=== PATIENT | female | born 1945 | race Caucasian/White ===

== ENCOUNTER 2018-05-15 21:18 | Inpatient (IN) ==
[2018-05-15 21:31] VITALS: BMI 24.7
--- NOTE | 2018-05-15 22:11 | DR.EXTPAIN ---
HPI Time seen Time Seen by Provider: 05/15/18 21:51 PCP Primary Care Physician: EVON ARMSTRONG Complaint/Symptoms Chief Complaint Doctor Comments: Patient presents to the ED with complaint of vomiting and diarrhea today. She was discharged from [place] on yesterday s/p evaluation a fall on 04/08 with injuries sustaining injuries of right shoulder, right hip and pelvis. PMHx: Complex, comminuted, impacted , displaced fracture of the humeral head and humeral neck of the right shoulder. 2.Vertical fracture of the right sacral ala with inferior aspect of the fracture involving the right sacroiliac joint, fracture of the anterior superior aspect of the acetabulum,oblique fracture involving rhe right ischium and right inferior pubic ramus, fracture of the superior pubic ramus near the pubic symphysis with the right hip joint and proximal femur being intact. 3.Hypoxia, resolved. This is multifactorial in etiology secondary to her chronic diastolic heart failure exacerbated by bilateral pleural effusion with bibasilar atelectasis. 4.Electrolyte imbalance, repleted.5.Acute kidney injury, resolved. 6. Chronic diastolic heart failure 7. Anemia of chronic disease. She was in a step down unit for rehabilitation. Family members states that she has been vomiting and having diarrhea today and is weak and listless. Chief Complaint:: PATIENT BROUGHT IN ON STRETCHER BY [facility]. PATIENT STATES " SHE JUST GOT DISCHARGED FROM [facility] YESTERDAY FOR RIGHT SIDE SHOULDER AND HIP FRACTURE THAT THEY ARE GOING TO HOLD OFF ON THE SURGERY FOR NOW BUT WHEN THEY DISCHARGED HER SHE DIDNT FEEL GOOD AND ON THE WAY HOME SHE GOT SICK THROWING UP AND EVER SINCE THEN IT HAS JUST GOTTEN WORST AND BEEN REALLY WEAK." Self Treatment fo Chief Complaint: 0.5 DILUDID IVP AND 500ML NS BOLUS GIVEN BY [facility] ENROUTE TO ED Source History Provided: Patient and EMS Mode of arrival Mode of Arrival: EMS Timing Onset of Chief Complaint: 05/14/18 PMH PMH Past Medical History: No Past Medical History: Hypertension Past Surgical History: Yes Surgical History: Appendectomy, Hysterectomy and Tonsillectomy Family History History of Family Medical Conditions: No Social History Alcohol Use: None Do you use any recreational Drugs:: No Lives Where: Home infectious screening Have you traveled outside the country in the last 6 months?: No PE Vital Signs Vitals: Temperature 98.1 F Pulse Rate [Left Brachial] 74 Pulse Rate [Brachial] 87 Pulse Rate 103 Respiratory Rate 18 Blood Pressure [Left Arm] 109/56 Blood Pressure [Left Calf] 114/59 Blood Pressure 120/69 O2 Sat by Pulse Oximetry 96 General Limitations: No Limitations and Physical Limitation (fractures of shoulder,hip and pelvis) General Appearance: Alert and In No Apparent Distress Head Head Exam: Normal Inspection, Atraumatic and Normocephalic Eyes Eye exam: Normal Appearance, PERRL and EOMI ENT ENT Exam: Normal Exam, Normal Oropharynx, Normal External Ear Exam and Mucous Membranes Moist Neck Neck Exam: Normal Inspection and Full ROM Chest Chest Inspection: Normal Inspection and Symmetric Chest Wall Rise Respiratory Respiratory Exam: Normal Lung Sounds Bilat and Accessory Muscle Use Respiratory Exam: Bilateral: Clear to Auscultation Cardiovascular Cardiovascular Exam: Regular Rate and Normal Rhythm Abdominal Exam Abdominal Exam: Normal Inspection, Normal Bowel Sounds and Soft Abdominal Tenderness: RUQ, RLQ and LUQ Extremities Extremities Exam: Normal Inspection, Tenderness (right hip,shoulder) and Normal Capillary Refill Upper Extremities Shoulder Exam: Tenderness (right) Arm Exam: Normal Inspection Elbow Exam: Normal Inspection Forearm Exam: Normal Inspection Hand Exam: Normal Inspection Neuromotor Exam: Normal Exam and Wrist Extension Neurosensory Exam: Normal Exam Lower Extremities Upper Leg Exam: Tenderness (right) Knee Exam: Normal Inspection Lower Leg Exam: Normal Inspection Ankle Exam: Normal Inspection Foot/Toe Exam: Normal Inspection Back Back Exam: Normal Inspection and Full ROM Neurological Neurological Exam: Alert, Oriented X3 and CN II-XII Intact Psychiatric Psychiatric Exam: Normal Affect and Normal Mood Skin Skin Exam: Warm, Dry and Intact COURSE Consultation Called: 23:30 Consultation Comments: Dr. Bahena agreed to admit for further evaluation and treatment ROR Labs Reviewed Laboratory Results Reviewed?: Yes Result Diagrams: 05/17/18 06:01 05/17/18 06:01 Laboratory: 05/15/18 23:48 Urine,Clean Catch Urine Culture - Final 05/16/18 19:01 Stool - Final WBC 7.1 X10^3/uL (3.6-10.0) 05/17/18 06:01 RBC 4.09 X10^6/uL (3.5-5.4) 05/17/18 06:01 Hgb 11.4 g/dL (12.0-16.0) L 05/17/18 06:01 Hct 33.7 % (36.0-47.0) L 05/17/18 06:01 MCV 82.4 fL (80.0-100.0) 05/17/18 06:01 MCH 27.9 pg (27.0-34.0) 05/17/18 06:01 MCHC 33.9 g/dL (33.0-35.0) 05/17/18 06:01 RDW 18.6 % (11.6-16.5) H 05/17/18 06:01 Plt Count 189 X10^3/uL (150.0-450.0) 05/17/18 06:01 MPV 8.6 fL (7.4-11.0) 05/17/18 06:01 Neut % (Auto) 56.9 % (42.0-75.0) 05/17/18 06:01 Lymph % (Auto) 31.0 % (21.0-51.0) 05/17/18 06:01 [place] % (Auto) 8.1 % (0.0-13.0) 05/17/18 06:01 Eos % (Auto) 3.4 % (0.9-2.9) H 05/17/18 06:01 Baso % (Auto) 0.6 % (0.2-1.0) 05/17/18 06:01 Neut # (Auto) 4.0 x10^3/uL (2.2-4.8) 05/17/18 06:01 Lymph # (Auto) 2.2 X10^3/uL (1.3-2.9) 05/17/18 06:01 [place] # (Auto) 0.6 x10^3/uL (0.3-0.8) 05/17/18 06:01 Eos # (Auto) 0.2 x10^3/uL (0.0-0.2) 05/17/18 06:01 Baso # (Auto) 0.0 X10^3/uL (0.0-0.1) 05/17/18 06:01 Absolute Nucleated RBC 0.0 /100WBC 05/17/18 06:01 Sodium 137 mmol/L (136-145) 05/17/18 06:01 Corrected Sodium TNP 05/17/18 06:01 Potassium 4.0 mmol/L (3.5-5.1) 05/17/18 06:01 Chloride 103 mmol/L (98-107) 05/17/18 06:01 Carbon Dioxide 27.2 mmol/L (21-32) 05/17/18 06:01 BUN 12 mg/dL (7-18) 05/17/18 06:01 Creatinine 0.93 mg/dL (0.55-1.02) 05/17/18 06:01 Est GFR (MDRD) Af Amer > 60 (>60) 05/17/18 06:01 Est GFR (MDRD) Non-Af > 60 (>60) 05/17/18 06:01 Glucose 87 mg/dL (65-99) 05/17/18 06:01 Hemoglobin A1c 5.6 % 05/16/18 05:35 Calcium 8.7 mg/dL (8.5-10.1) 05/17/18 06:01 Corrected Calcium 9.8 mg/dL (8.5-10.1) 05/17/18 06:01 Magnesium 2.0 mg/dL (1.7-2.9) 05/17/18 05:37 Total Bilirubin 0.50 mg/dL (0.2-1.0) 05/17/18 06:01 AST 49 Units/L (15-37) H 05/17/18 06:01 ALT 44 Units/L (12-78) 05/17/18 06:01 Alkaline Phosphatase 95 Units/L (46-116) 05/17/18 06:01 C-Reactive Protein 98.60 mg/L (0-3.0) H 05/15/18 22:12 Total Protein 6.8 g/dL (6.4-8.2) 05/17/18 06:01 Albumin 2.6 g/dL (3.4-5.0) L 05/17/18 06:01 Globulin 4.2 g/dL (2.5-4.5) 05/17/18 06:01 Albumin/Globulin Ratio 0.6 Ratio (1.1-2.1) L 05/17/18 06:01 Specimen Type Clean catch urine 05/15/18 23:48 Urine Color Dark yellow (YELLOW) 05/15/18 23:48 Urine Appearance Clear (CLEAR) 05/15/18 23:48 Urine pH 5.0 (5.0 - 8.0) 05/15/18 23:48 Ur Specific [place] 1.020 (1.000-1.030) 05/15/18 23:48 Urine Protein 1+ (NEGATIVE) 05/15/18 23:48 Urine Glucose (UA) Negative (NEGATIVE) 05/15/18 23:48 Urine Ketones Negative (NEGATIVE) 05/15/18 23:48 Urine Occult Blood 4+ (NEGATIVE) 05/15/18 23:48 Urine Nitrite Negative (NEGATIVE) 05/15/18 23:48 Urine Bilirubin Negative (NEGATIVE) 05/15/18 23:48 Urine Urobilinogen Normal (NORMAL) 05/15/18 23:48 Ur Leukocyte Esterase 1+ (NEGATIVE) 05/15/18 23:48 Urine RBC 3-5 /HPF (NONE SEEN) 05/15/18 23:48 Urine WBC 5-10 /HPF (NONE SEEN) 05/15/18 23:48 Ur Squamous Epith Cells Moderate /HPF (NEGATIVE) 05/15/18 23:48 Amorphous Sediment Trace /HPF (NEGATIVE) 05/15/18 23:48 Urine Bacteria Trace /HPF (NEGATIVE) 05/15/18 23:48 Urine Mucus Moderate /HPF (NEGATIVE) 05/15/18 23:48 Ur Culture Indicated? Yes/culture set up 05/15/18 23:48 Stool Description 50g,brown,semi-solid 05/16/18 19:01 Stl Occult Blood (IFOB) Positive (NEGATIVE) A 05/16/18 19:01 Stool for White Cells Positive (NEGATIVE) A 05/16/18 19:01 Stl C. diff Tox B Gene Negative (NEGATIVE) 05/16/18 19:01 Stl C. diff [id number] Negative (NEGATIVE) 05/16/18 19:01 Stool H. pylori Ag Negative (NEGATIVE) 05/16/18 19:01 XRAY XRAY Interpreted by: Radiologist XRAY Findings: HPI Diagnosis Discharge Problem: Hyponatremia, Hypokalemia, Dehydration
[2018-05-15 22:20] LABS: BASOPHILS # (AUTO) 0.1 X10^3/uL (0.0-0.1); BASOPHILS % (AUTO) 0.4 % (0.2-1.0); EOSINOPHILS % (AUTO) 0.1 % (0.9-2.9); HEMATOCRIT 36.5 % (36.0-47.0); HEMOGLOBIN 12.2 g/dL (12.0-16.0); LYMPHOCYTES # (AUTO) 1.9 X10^3/uL (1.3-2.9); LYMPHOCYTES % (AUTO) 11.4 % (21.0-51.0); MEAN CORPUSCULAR HEMOGLOBIN 27.3 pg (27.0-34.0); MEAN CORPUSCULAR HGB CONC 33.5 g/dL (33.0-35.0); MEAN CORPUSCULAR VOLUME 81.5 fL (80.0-100.0); MEAN PLATELET VOLUME 8.6 fL (7.4-11.0); MONOCYTES # (AUTO) 1.8 x10^3/uL (0.3-0.8); MONOCYTES % (AUTO) 10.5 % (0.0-13.0); NEUTROPHILS % (AUTO) 77.6 % (42.0-75.0); PLATELET COUNT 295 X10^3/uL (150.0-450.0); RED BLOOD COUNT 4.48 X10^6/uL (3.5-5.4); RED CELL DISTRIBUTION WIDTH 18.5 % (11.6-16.5); WHITE BLOOD COUNT 16.7 X10^3/uL (3.6-10.0)
[2018-05-15 22:32] LABS: ALANINE AMINOTRANSFERASE 76 Units/L (12-78); ALBUMIN 2.9 g/dL (3.4-5.0); ALKALINE PHOSPHATASE 113 Units/L (46-116); ASPARTATE AMINO TRANSFERASE 83 Units/L (15-37); BLOOD UREA NITROGEN 23 mg/dL (7-18); CALCIUM 8.7 mg/dL (8.5-10.1); CARBON DIOXIDE 28.7 mmol/L (21-32); CHLORIDE 95 mmol/L (98-107); COR CA(FOR HYPOALB) 9.6 mg/dL (8.5-10.1); COR NA(FOR HYPERGLY) 134 mmol/L (136-145); CREATININE 1.06 mg/dL (0.55-1.02); SODIUM 133 mmol/L (136-145); TOTAL PROTEIN 7.6 g/dL (6.4-8.2); eGFR NON BLACK RACES 54 (>60)
[2018-05-15] MEDS ORDERED: NS 1000 ML 1,000 ML IV SCH (23:00)
[2018-05-15 23:55] LABS: BILIRUBIN,URINE NEGATIVE (NEGATIVE); BLOOD/HEMOGLOBIN,URINE 4+ (NEGATIVE); GLUCOSE, URINE NEGATIVE (NEGATIVE); KETONES,URINE NEGATIVE (NEGATIVE); LEUKOCYTE ESTERASE ,URINE 1+ (NEGATIVE); NITRITES,URINE NEGATIVE (NEGATIVE); PROTEIN,URINE 1+ (NEGATIVE); UROBILINOGEN,URINE NORMAL (NORMAL)
[2018-05-15 23:57] LABS: APPEARANCE,URINE CLEAR (CLEAR); COLOR,URINE DARK YELLOW (YELLOW)
--- NOTE | 2018-05-16 00:04 | RAD ---
Chest, one view Indication: Vomiting, weakness, history of right shoulder and right hip fracture. Comparison: 12/06/2010 Findings: The heart is normal in size for AP technique. No focal infiltrate, significant effusion or pneumothorax is identified. Partially visualized fracture of the proximal right humerus noted. Remaining imaged osseous structures are grossly intact. Impression: No acute cardiopulmonary abnormality. Reported By:
[2018-05-16 00:08] LABS: AMORPHOUS SEDIMENT,UR TRACE /HPF (NEGATIVE); BACTERIA,URINE TRACE /HPF (NEGATIVE); SQUAMOUS EPITHELIAL CELL,UR MODERATE /HPF (NEGATIVE)
[2018-05-16 00:09] LABS: MUCUS,URINE MODERATE /HPF (NEGATIVE)
[2018-05-16] MEDS ORDERED: POTASSIUM CHLORIDE INJ 20 MEQ VIAL IV PRN (00:15)
[2018-05-16] MEDS ORDERED: ZOFRAN TAB 4 MG PO PRN (00:23)
[2018-05-16] MEDS ORDERED: TRAMADOL ACETAMINOPHEN PO PRN (00:23)
[2018-05-16] MEDS: KLONOPIN TAB 1 MG PO SCH ×2 (00:56→15:29)
[2018-05-16] MEDS: NS 1000 ML 1,000 ML IV SCH (00:57)
[2018-05-16] MEDS: NS + KCL 20 MEQ/L 1,000 ML IV PRN ×2 (01:00→15:24)
[2018-05-16] MEDS ORDERED: NS + KCL 20 MEQ/L 1,000 ML IV ONE (01:01)
[2018-05-16 06:04] LABS: BASOPHILS % (AUTO) 0.3 % (0.2-1.0); EOSINOPHILS # (AUTO) 0.1 x10^3/uL (0.0-0.2); EOSINOPHILS % (AUTO) 0.8 % (0.9-2.9); HEMATOCRIT 34.6 % (36.0-47.0); HEMOGLOBIN 11.4 g/dL (12.0-16.0); LYMPHOCYTES # (AUTO) 2.8 X10^3/uL (1.3-2.9); LYMPHOCYTES % (AUTO) 22.4 % (21.0-51.0); MEAN CORPUSCULAR HEMOGLOBIN 27.3 pg (27.0-34.0); MEAN CORPUSCULAR VOLUME 82.8 fL (80.0-100.0); MEAN PLATELET VOLUME 8.7 fL (7.4-11.0); MONOCYTES # (AUTO) 1.2 x10^3/uL (0.3-0.8); MONOCYTES % (AUTO) 9.8 % (0.0-13.0); NEUTROPHILS # (AUTO) 8.4 x10^3/uL (2.2-4.8); NEUTROPHILS % (AUTO) 66.7 % (42.0-75.0); PLATELET COUNT 244 X10^3/uL (150.0-450.0); RED BLOOD COUNT 4.18 X10^6/uL (3.5-5.4); RED CELL DISTRIBUTION WIDTH 18.4 % (11.6-16.5); WHITE BLOOD COUNT 12.7 X10^3/uL (3.6-10.0)
[2018-05-16 06:19] LABS: ALANINE AMINOTRANSFERASE 61 Units/L (12-78); ALBUMIN 2.6 g/dL (3.4-5.0); ALKALINE PHOSPHATASE 104 Units/L (46-116); ASPARTATE AMINO TRANSFERASE 64 Units/L (15-37); BLOOD UREA NITROGEN 20 mg/dL (7-18); CALCIUM 8.6 mg/dL (8.5-10.1); CARBON DIOXIDE 27.9 mmol/L (21-32); CHLORIDE 98 mmol/L (98-107); COR CA(FOR HYPOALB) 9.7 mg/dL (8.5-10.1); CREATININE 1.01 mg/dL (0.55-1.02); SODIUM 133 mmol/L (136-145); TOTAL PROTEIN 6.9 g/dL (6.4-8.2); eGFR NON BLACK RACES 57 (>60)
[2018-05-16] MEDS ORDERED: POTASSIUM CHLORIDE LIQ 20 MEQ UDC PO PRN (07:55)
[2018-05-16] MEDS ORDERED: POTASSIUM CHL 40 MEQ/NS 0.45% 500 ML IV PRN (07:55)
[2018-05-16] MEDS ORDERED: MAGNESIUM SULFATE 1 GRAM/100 mL PREMIX 1 GM/100 ML BAG IV PRN (07:55)
[2018-05-16] MEDS ORDERED: KLOR-CON PO PRN (07:55)
[2018-05-16] MEDS ORDERED: POTASSIUM CHL 60 MEQ/NS 0.45% 500 ML IV PRN (07:55)
[2018-05-16] MEDS ORDERED: K-DUR TAB 20 MEQ PO PRN (07:55)
[2018-05-16] MEDS ORDERED: MICRO K EXTEN CAP 10 MEQ PO PRN (07:55)
[2018-05-16] MEDS ORDERED: K-RIDER 10 MEQ/NS 100 ML 10 MEQ/100 ML BAG IV PRN (07:55)
[2018-05-16] MEDS ORDERED: PATIENT'S HOME MEDICATION (Lisinopril 5 MG) PO SCH (09:00)
[2018-05-16] MEDS: SYNTHROID 50 mcg TAB PO SCH (10:17)
[2018-05-16] MEDS: TOPROL XL PO SCH (10:18)
[2018-05-16] MEDS: PriLOSEC PO SCH (10:18)
[2018-05-16] MEDS: LOVENOX INJ 30 MG SYR SC SCH (10:20)
[2018-05-16] MEDS: ZESTRIL TAB 5 MG PO SCH (10:21)
--- NOTE | 2018-05-16 10:46 | RAD ---
Examination: Abdomen with PA chest, three views History: Throwing up Findings: PA chest demonstrates no acute cardiac or pulmonary lesion. Fracture of the proximal right humerus is noted. Supine and erect views of abdomen demonstrate slight nonspecific distention of the colon. There is no evidence for free air, ascites, mass formation or abnormal calcification. Air is noted within left colon diverticula. Impression: No evidence for acute cardiac, pulmonary or abdominal process. Left colon diverticular involvement. Fracture proximal right humerus. Reported By:
--- NOTE | 2018-05-16 11:47 | DR.H&P ---
H&P - History & Physical for Day of: H&P Date: 05/16/18 - Chief Complaint Chief Complaint: n/v/d, weakness, syncope - History of Present Illness History of Present Illness: 73 WF ER ADMISSION AFTER PRESENTING PER [facility] WITH complaint of vomiting and diarrhea today, and near syncopal episode per daughter. She was discharged from [facility] on yesterday s/p evaluation a fall on 04/08 with injuries sustaining injuries of right shoulder, right hip and pelvis. PMHx: Complex, comminuted, impacted , displaced fracture of the humeral head and humeral neck of the right shoulder. 2.Vertical fracture of the right sacral ala with inferior aspect of the fracture involving the right sacroiliac joint, fracture of the anterior superior aspect of the acetabulum,oblique fracture involving rhe right ischium and right inferior pubic ramus, fracture of the superior pubic ramus near the pubic symphysis with the right hip joint and proximal femur being intact. PT HAS PMH OF HYPOTHYROIDISM AND HTN, DENIES ANY CAD, DM OR SEIZURE DISORDER. PT WAS ADMITTED FOR EVALUATION AND TREATMENT OF ACUTE ON SUBACUTE ILLNESSES. - Past Medical History Past Medical History: Hypertension, Hypothyroidism - Past Surgical History Surgical History: Appendectomy, Hysterectomy, Ortho Surgery, Tonsillectomy - Social History Have you used tobacco products in the last 12 months: No Type of Tobacco Use: None Does any household member use tobacco: No Alcohol Use: None Drug Use: None - Medications Home Medications: iodine Allergy (Verified 05/16/18 00:29) levofloxacin Allergy (Verified 05/15/18 22:49) Penicillins Allergy (Verified 05/15/18 22:49) CONTINUE taking the following medications clonazepam 1 mg PO Q12H 05/15/18 [History] ondansetron 8 mg PO Q8H PRN 05/15/18 [History] oxycodone-acetaminophen 1 tab PO Q4H PRN 05/15/18 [History] - Review of Systems Constitutional: Chills, Weakness Eyes: No Symptoms Reported ENT: No Symptoms Reported Respiratory: No Symptoms Reported Cardiovascular: Edema Gastrointestinal: Nausea, Vomiting, Diarrhea Genitourinary: No Symptoms Reported Musculoskeletal: Shoulder Pain, Arm Pain, Leg Pain Skin: No Symptoms Reported Neurological: Weakness, Other (DAUGHTER REPORTS PT "IS NORMAL THEN HAS BLANK STARE, NOT RESPONDING") - Physical Exam Vital Signs: Temperature 98 F Pulse Rate [Brachial] 87 Pulse Rate 103 Respiratory Rate 18 Blood Pressure [Left Calf] 114/59 Blood Pressure 120/69 O2 Sat by Pulse Oximetry 96 Oriented: Person, Place Eyes: Normal Ear: Normal Nose: Normal Throat: Normal Respiratory: RLL Diminished, LLL Diminished Cardiovascular: Normal. negative: Murmur : Normal Auscultation: Bowel Sounds: Increased Palpation: Normal Tenderness: RUQ, RLQ Skin: Decreased Turgur Musculoskeletal: Right, Shoulder, Hip, Back:Lumbar, Swelling, Tender, Sensory Deficit, Instability Mood Description: Flat Affect: Depressed Speech Pattern: Clear, Appropriate - Assessment/Plan (1) Near syncope Status: Acute Plan: ADMIT, CT HEAD THIS AM, VERIFY HOME MEDICATION. BP CONTROL, SUPPLEMENTAL O2 PRN. GENTLE IV HYDRATION WITH ELECTROLYTE REPLACEMENT. PAIN AND NAUSEA CONTROL, STOOL STUDIES. XRAY RIGHT SHOULDER, (R HIP FX SEEN IN ABD SERIES). IV ROCEPHIN FOR UTI, CULTURE COLLECTED (2) Hypertension Status: Acute (3) Right humeral fracture Status: Acute (4) Right femoral fracture Status: Acute (5) Hyponatremia Status: Acute (6) Hypokalemia Status: Acute (7) Dehydration Status: Acute (8) Nausea, vomiting and diarrhea Status: Acute - Allergies Allergies/Adverse Reactions: Allergies Allergy/AdvReac Type Severity Reaction Status Date / Time iodine Allergy Verified 05/16/18 00:29 levofloxacin Allergy Verified 05/15/18 22:49 Penicillins Allergy Verified 05/15/18 22:49
--- NOTE | 2018-05-16 13:37 | RAD ---
Examination: Right shoulder, 6 views History: Fell, fracture 2 weeks ago Findings: There is a closed comminuted fracture of the proximal right humerus with significant displacement of fragments and deformity. Impaction is present. Major portion of the humeral head is probably related anatomically to the glenoid. Faint callus formation is suggested, consistent with subacute injury. The AC joint is preserved. Impression: Subacute/healing comminuted, displaced and deforming fracture proximal right humerus. Reported By:
--- NOTE | 2018-05-16 14:55 | CT ---
HISTORY: Syncope Study: CT brain without contrast Comparison: None Technique: Multiple axial images of the brain were obtained from the skull base to the vertex without administration of IV contrast. Findings: No acute intraparenchymal hemorrhage or mass can be identified. No extra-axial fluid collections are seen. No alteration in the attenuation of the brain parenchyma can be identified to suggest acute or subacute ischemic change. The ventricles, sulci, and cisterns demonstrate an appearance consistent with a [id number] degree of generalized atrophy. Patchy areas of decreased attenuation within the periventricular, subcortical, and subinsular white matter suggest changes of chronic small vessel ischemic disease. Mucosal thickening is seen within the visualized maxillary sinuses bilaterally. If symptoms or clinical concern persist recommend continued follow-up for further evaluation. IMPRESSION: No acute intracranial process can be identified. Mild to moderate generalized atrophy with findings consistent with changes of chronic small vessel ischemic disease. Maxillary sinus disease as noted above. Reported By:
[2018-05-16] MEDS: PEPCID 20 MG IV PREMIX* 20 MG/50 ML BAG IV SCH ×2 (15:24→20:37)
[2018-05-16] MEDS: ROCEPHIN VIAL 1 GRAM IVP SCH (18:23)
[2018-05-16 19:37] LABS: STOOL FOR WBC POSITIVE (NEGATIVE)
[2018-05-16] MEDS ORDERED: IMODIUM CAP 2 MG PO PRN (20:33)
[2018-05-16] MEDS: BACTRIM DS TAB PO SCH (20:37)
[2018-05-16] MEDS: PERCOCET TAB 5/325 MG PO PRN (20:40)
[2018-05-17] MEDS: KLONOPIN TAB 1 MG PO SCH ×2 (00:13→14:00)
[2018-05-17] MEDS: NS 1000 ML 1,000 ML IV SCH ×3 (03:55→22:23)
[2018-05-17 06:28] LABS: BASOPHILS % (AUTO) 0.6 % (0.2-1.0); EOSINOPHILS # (AUTO) 0.2 x10^3/uL (0.0-0.2); EOSINOPHILS % (AUTO) 3.4 % (0.9-2.9); HEMATOCRIT 33.7 % (36.0-47.0); HEMOGLOBIN 11.4 g/dL (12.0-16.0); LYMPHOCYTES # (AUTO) 2.2 X10^3/uL (1.3-2.9); MEAN CORPUSCULAR HEMOGLOBIN 27.9 pg (27.0-34.0); MEAN CORPUSCULAR HGB CONC 33.9 g/dL (33.0-35.0); MEAN CORPUSCULAR VOLUME 82.4 fL (80.0-100.0); MEAN PLATELET VOLUME 8.6 fL (7.4-11.0); MONOCYTES # (AUTO) 0.6 x10^3/uL (0.3-0.8); MONOCYTES % (AUTO) 8.1 % (0.0-13.0); NEUTROPHILS % (AUTO) 56.9 % (42.0-75.0); PLATELET COUNT 189 X10^3/uL (150.0-450.0); RED BLOOD COUNT 4.09 X10^6/uL (3.5-5.4); RED CELL DISTRIBUTION WIDTH 18.6 % (11.6-16.5); WHITE BLOOD COUNT 7.1 X10^3/uL (3.6-10.0)
[2018-05-17 06:40] LABS: ALANINE AMINOTRANSFERASE 44 Units/L (12-78); ALBUMIN 2.6 g/dL (3.4-5.0); ALKALINE PHOSPHATASE 95 Units/L (46-116); ASPARTATE AMINO TRANSFERASE 49 Units/L (15-37); BLOOD UREA NITROGEN 12 mg/dL (7-18); CALCIUM 8.7 mg/dL (8.5-10.1); CARBON DIOXIDE 27.2 mmol/L (21-32); CHLORIDE 103 mmol/L (98-107); COR CA(FOR HYPOALB) 9.8 mg/dL (8.5-10.1); CREATININE 0.93 mg/dL (0.55-1.02); SODIUM 137 mmol/L (136-145); TOTAL PROTEIN 6.8 g/dL (6.4-8.2); eGFR NON BLACK RACES > 60 (>60)
[2018-05-17] MEDS: PEPCID 20 MG IV PREMIX* 20 MG/50 ML BAG IV SCH ×2 (08:44→20:09)
[2018-05-17] MEDS: ZESTRIL TAB 5 MG PO SCH (08:45)
[2018-05-17] MEDS: BACTRIM DS TAB PO SCH ×2 (08:45→20:08)
[2018-05-17] MEDS: TOPROL XL PO SCH (08:45)
[2018-05-17] MEDS: SYNTHROID 50 mcg TAB PO SCH (08:45)
[2018-05-17] MEDS: ROCEPHIN VIAL 1 GRAM IVP SCH (08:45)
[2018-05-17] MEDS: PriLOSEC PO SCH (08:45)
[2018-05-17] MEDS: LOVENOX INJ 30 MG SYR SC SCH (08:46)
[2018-05-17] MEDS: PERCOCET TAB 5/325 MG PO PRN (20:08)
[2018-05-18] MEDS: KLONOPIN TAB 1 MG PO SCH ×2 (01:00→13:45)
[2018-05-18] MEDS: NS 1000 ML 1,000 ML IV SCH (05:03)
[2018-05-18 05:34] LABS: BASOPHILS # (AUTO) 0.1 X10^3/uL (0.0-0.1); BASOPHILS % (AUTO) 1.1 % (0.2-1.0); EOSINOPHILS # (AUTO) 0.2 x10^3/uL (0.0-0.2); EOSINOPHILS % (AUTO) 2.8 % (0.9-2.9); HEMATOCRIT 35.7 % (36.0-47.0); HEMOGLOBIN 11.5 g/dL (12.0-16.0); LYMPHOCYTES # (AUTO) 2.5 X10^3/uL (1.3-2.9); LYMPHOCYTES % (AUTO) 36.7 % (21.0-51.0); MEAN CORPUSCULAR HEMOGLOBIN 27.2 pg (27.0-34.0); MEAN CORPUSCULAR HGB CONC 32.1 g/dL (33.0-35.0); MEAN CORPUSCULAR VOLUME 84.7 fL (80.0-100.0); MONOCYTES # (AUTO) 0.5 x10^3/uL (0.3-0.8); MONOCYTES % (AUTO) 7.1 % (0.0-13.0); NEUTROPHILS # (AUTO) 3.6 x10^3/uL (2.2-4.8); NEUTROPHILS % (AUTO) 52.3 % (42.0-75.0); PLATELET COUNT 93 X10^3/uL (150.0-450.0); RED BLOOD COUNT 4.22 X10^6/uL (3.5-5.4); WHITE BLOOD COUNT 6.9 X10^3/uL (3.6-10.0)
[2018-05-18 05:36] LABS: ALANINE AMINOTRANSFERASE 36 Units/L (12-78); ALBUMIN 2.5 g/dL (3.4-5.0); ALKALINE PHOSPHATASE 94 Units/L (46-116); ASPARTATE AMINO TRANSFERASE 47 Units/L (15-37); BLOOD UREA NITROGEN 8 mg/dL (7-18); CALCIUM 8.7 mg/dL (8.5-10.1); CARBON DIOXIDE 24.5 mmol/L (21-32); CHLORIDE 106 mmol/L (98-107); COR CA(FOR HYPOALB) 9.9 mg/dL (8.5-10.1); CREATININE 0.97 mg/dL (0.55-1.02); SODIUM 140 mmol/L (136-145); TOTAL PROTEIN 6.7 g/dL (6.4-8.2); eGFR NON BLACK RACES 60 (>60)
[2018-05-18] MEDS: SYNTHROID 50 mcg TAB PO SCH (08:51)
[2018-05-18] MEDS: ROCEPHIN VIAL 1 GRAM IVP SCH (08:51)
[2018-05-18] MEDS: BACTRIM DS TAB PO SCH ×2 (08:51→20:20)
[2018-05-18] MEDS: TOPROL XL PO SCH (08:51)
[2018-05-18] MEDS: PriLOSEC PO SCH (08:51)
[2018-05-18] MEDS: PEPCID 20 MG IV PREMIX* 20 MG/50 ML BAG IV SCH ×2 (08:52→20:21)
[2018-05-18] MEDS: LOVENOX INJ 30 MG SYR SC SCH (08:52)
[2018-05-18] MEDS: ZESTRIL TAB 5 MG PO SCH (08:53)
[2018-05-18] MEDS ORDERED: PHARMACY CONSULT - TPN XX SCH (11:00)
[2018-05-18] MEDS: ALBUMIN HUMAN 25%- 100 ML 100 ML IV SCH (12:10)
--- NOTE | 2018-05-18 12:59 | RAD ---
HISTORY: Central line placement Study: Single-view chest Comparison: 05/15/2018. Findings: Left-sided subclavian line is been placed with the tip in the mid SVC. No pneumothorax is seen. Trachea is midline heart size is normal. There is aortic uncoiling. Lungs and pleural spaces are clear. Old nonunion fracture of the right humeral neck. No acute osseous changes are seen. IMPRESSION: Left-sided CVP line with the tip in the mid SVC. No pneumothorax is seen. Reported By:
[2018-05-18] MEDS: MEGACE PO SCH ×2 (13:47→20:20)
[2018-05-18] MEDS: PERCOCET TAB 5/325 MG PO PRN ×2 (13:47→20:22)
[2018-05-18] MEDS: LEVSIN/MAALOX/LIDOC VISC PO SCH ×4 (13:47→20:20)
[2018-05-18] MEDS: PROCALAMINE 3 % 1,000 ML IV SCH (13:50)
[2018-05-18] MEDS: DIFLUCAN 200 MG IV PREMIX* 200 MG/100 ML BAG IV SCH (15:44)
[2018-05-18] MEDS: PROTONIX INJ 40 MG VIAL IVP SCH (20:21)
[2018-05-19] MEDS: PERCOCET TAB 5/325 MG PO PRN ×4 (00:18→20:26)
[2018-05-19] MEDS: KLONOPIN TAB 1 MG PO SCH ×2 (00:18→14:06)
[2018-05-19 05:57] LABS: BASOPHILS % (AUTO) 0 % (0.2-1.0); EOSINOPHILS # (AUTO) 0.4 x10^3/uL (0.0-0.2); EOSINOPHILS % (AUTO) 6.5 % (0.9-2.9); HEMATOCRIT 28.7 % (36.0-47.0); HEMOGLOBIN 9.6 g/dL (12.0-16.0); LYMPHOCYTES # (AUTO) 1.4 X10^3/uL (1.3-2.9); LYMPHOCYTES % (AUTO) 23.9 % (21.0-51.0); MEAN CORPUSCULAR HEMOGLOBIN 27.9 pg (27.0-34.0); MEAN CORPUSCULAR HGB CONC 33.6 g/dL (33.0-35.0); MEAN PLATELET VOLUME 8.7 fL (7.4-11.0); MONOCYTES # (AUTO) 0.4 x10^3/uL (0.3-0.8); MONOCYTES % (AUTO) 6.5 % (0.0-13.0); NEUTROPHILS # (AUTO) 3.8 x10^3/uL (2.2-4.8); NEUTROPHILS % (AUTO) 63.1 % (42.0-75.0); PLATELET COUNT 183 X10^3/uL (150.0-450.0); RED BLOOD COUNT 3.45 X10^6/uL (3.5-5.4)
[2018-05-19 06:09] LABS: ALANINE AMINOTRANSFERASE 32 Units/L (12-78); ALBUMIN 2.6 g/dL (3.4-5.0); ALKALINE PHOSPHATASE 62 Units/L (46-116); BLOOD UREA NITROGEN 8 mg/dL (7-18); CALCIUM 8.7 mg/dL (8.5-10.1); CARBON DIOXIDE 25.5 mmol/L (21-32); CHLORIDE 106 mmol/L (98-107); COR CA(FOR HYPOALB) 9.8 mg/dL (8.5-10.1); CREATININE 0.66 mg/dL (0.55-1.02); SODIUM 140 mmol/L (136-145); TOTAL PROTEIN 6.3 g/dL (6.4-8.2); eGFR NON BLACK RACES > 60 (>60)
[2018-05-19 06:17] LABS: ASPARTATE AMINO TRANSFERASE 30 Units/L (15-37)
[2018-05-19 06:30] LABS: PLATELET MORPHOLOGY COMMENT NORMAL (NORMAL)
[2018-05-19] MEDS: PROCALAMINE 3 % 1,000 ML IV SCH (08:45)
[2018-05-19] MEDS: ROCEPHIN VIAL 1 GRAM IVP SCH (08:45)
[2018-05-19] MEDS: PEPCID 20 MG IV PREMIX* 20 MG/50 ML BAG IV SCH ×2 (08:45→20:27)
[2018-05-19] MEDS: LOVENOX INJ 30 MG SYR SC SCH (08:45)
[2018-05-19] MEDS: BACTRIM DS TAB PO SCH ×2 (08:45→20:25)
[2018-05-19] MEDS: ALBUMIN HUMAN 25%- 100 ML 100 ML IV SCH (08:45)
[2018-05-19] MEDS: SYNTHROID 50 mcg TAB PO SCH (08:45)
[2018-05-19] MEDS: MEGACE PO SCH ×2 (08:45→20:33)
[2018-05-19] MEDS: PROTONIX INJ 40 MG VIAL IVP SCH ×2 (08:45→20:26)
[2018-05-19] MEDS: DIFLUCAN 200 MG IV PREMIX* 200 MG/100 ML BAG IV SCH (08:45)
[2018-05-19] MEDS: LEVSIN/MAALOX/LIDOC VISC PO SCH ×4 (09:44→20:26)
[2018-05-19] MEDS: TOPROL XL PO SCH (09:58)
[2018-05-19] MEDS: ZESTRIL TAB 5 MG PO SCH (09:58)
[2018-05-19] MEDS: NS + KCL 20 MEQ/L 1,000 ML IV PRN (09:59)
[2018-05-19] MEDS: ZOFRAN INJ 4 MG VIAL IVP PRN ×2 (09:59→16:30)
[2018-05-19] MEDS ORDERED: DIFLUCAN 200 MG IV PREMIX* 200 MG/100 ML BAG IV SCH (11:00)
[2018-05-19] MEDS: NYSTATIN CREAM TOP SCH ×2 (14:05→20:34)
--- NOTE | 2018-05-19 19:20 | PCM.PROG ---
Progress Note - Progress Note for Day of Date of Exam: 05/18/18 - Subjective Subjective: IS A 73 YEAR OLD PATIENT OF OURS WHO WAS ADMITTED ON 05/16/18 FOR DEHYDRATION, HYPOKALEMIA, HYPONATREMIA, DIARRHEA, AND MULTIPLE FRACTURES. TODAY, SHE IS ALERT AND ORIENTED, LYING IN BED ON MORNING ROUNDS. SHE IS NOTED WITH COMPLAINTS OF WEAKNESS AND ABDOMINAL PAIN. SHE ALSO REPORTS A DECREASED APPETITE. SHE REPORTS RECENTLY BEING DISCHARGED FROM THE HOSPITAL IN [facility] S/P FALL WITH RIGHT SHOULDER, RIGHT HIP, AND PELVIS FRACTURES. ON EXAMINATION, HEART IS REGULAR IN RATE AND RHYTHM. BILATERAL LUNGS ARE NOTED WITH DIMINISHED LUNG SOUNDS THROUGHOUT. ABDOMEN IS NOTED TO BE DISTENDED WITH DIFFUSE TENDERNESS TO PALPATION. SHE IS WEARING A SLING TO THE RIGHT SHOULDER. HER PAYTON LS THIS MORNING ARE 97.5-58-20-96%-124/57. LABS WERE OBTAINED. ABNORMAL LAB VALUES INCLUDE THE FOLLOWING: RBC HGB 11.5, HCT 35.7, AST 47, CRP 45.0, ALBUMIN 2.5. STOOL CULTURE AND URINE CULTURES ARE PENDING. TODAY, WE WILL START ALBUMIN IV, TPN, MEGACE 40MG PO BID, PEPCID IV, PROTONIX IV, GI COCKTAIL, AND CONSULT FOR A CENTRAL LINE. OTHERWISE, WE WILL CONTINUE WITH CURRENT PLAN OF CARE. WE PLAN TO FOLLOW UP WITH AM LABS AND CONTINUE TO MONITOR. - Past Medical Family Social History Past Med/Fam/Surg Hx: No changes since H&P Allergies: Allergies Fish Containing Products Allergy (Verified 05/19/18 12:23) iodine Allergy (Verified 05/16/18 00:29) levofloxacin Allergy (Verified 05/15/18 22:49) Penicillins Allergy (Verified 05/15/18 22:49) - Review of Systems ROS: No change since H&P - Vital Signs and I&O's Vital Signs: Temperature 98.5 F Pulse Rate [Left Brachial] 86 Pulse Rate [Brachial] 87 Pulse Rate 103 Respiratory Rate 20 Blood Pressure [Left Arm] 118/78 Blood Pressure [Left Calf] 114/59 Blood Pressure 120/69 O2 Sat by Pulse Oximetry 98 Intake and Output: Intake & Output 05/17/18 05/18/18 05/19/18 05/20/18 11:59 11:59 11:59 11:59 Intake Total 1650 / 1650 3050 / 3050 3315 / 3315 880 / 880 Output Total 1500 / 1500 Balance 1650 / 1650 3050 / 3050 3315 / 3315 -620 / -620 - Physical Exam Oriented: Person, Place Eyes: Normal Ear: Normal Nose: Normal Throat: Normal Respiratory: Generalized, Diminished Cardiovascular: Normal. negative: Murmur : Normal Auscultation: Bowel Sounds: Increased Palpation: Normal Tenderness: Diffuse Skin: Decreased Turgur Musculoskeletal: Right, Shoulder, Hip, Back:Lumbar, Swelling, Tender, Sensory Deficit, Instability Mood Description: Flat Affect: Depressed Speech Pattern: Appropriate - Laboratory and Diagnostics Result Diagrams: 05/19/18 05:25 05/19/18 05:25 Labs: 05/16/18 19:01 Stool Stool Culture - Final 05/16/18 19:01 Stool - Final 05/15/18 23:48 Urine,Clean Catch Urine Culture - Final Laboratory WBC 6.0 X10^3/uL (3.6-10.0) 05/19/18 05:25 RBC 3.45 X10^6/uL (3.5-5.4) L 05/19/18 05:25 Hgb 9.6 g/dL (12.0-16.0) L 05/19/18 05:25 Hct 28.7 % (36.0-47.0) L 05/19/18 05:25 MCV 83.0 fL (80.0-100.0) 05/19/18 05:25 MCH 27.9 pg (27.0-34.0) 05/19/18 05:25 MCHC 33.6 g/dL (33.0-35.0) 05/19/18 05:25 RDW 18.0 % (11.6-16.5) H 05/19/18 05:25 Plt Count 183 X10^3/uL (150.0-450.0) 05/19/18 05:25 Plt Count Comment Adequate (ADEQUATE) 05/19/18 05:25 MPV 8.7 fL (7.4-11.0) 05/19/18 05:25 Neut % (Auto) 63.1 % (42.0-75.0) 05/19/18 05:25 Lymph % (Auto) 23.9 % (21.0-51.0) 05/19/18 05:25 [place] % (Auto) 6.5 % (0.0-13.0) 05/19/18 05:25 Eos % (Auto) 6.5 % (0.9-2.9) H 05/19/18 05:25 Baso % (Auto) 0 % (0.2-1.0) L 05/19/18 05:25 Neut # (Auto) 3.8 x10^3/uL (2.2-4.8) 05/19/18 05:25 Lymph # (Auto) 1.4 X10^3/uL (1.3-2.9) 05/19/18 05:25 [place] # (Auto) 0.4 x10^3/uL (0.3-0.8) 05/19/18 05:25 Eos # (Auto) 0.4 x10^3/uL (0.0-0.2) H 05/19/18 05:25 Baso # (Auto) 0.0 X10^3/uL (0.0-0.1) 05/19/18 05:25 Absolute Nucleated RBC 0.0 /100WBC 05/19/18 05:25 Total Counted 100 05/19/18 05:25 Neutrophils % (Manual) 71 % (39-76) 05/19/18 05:25 Lymphocytes % (Manual) 22 % (13-43) 05/19/18 05:25 Monocytes % (Manual) 5 % (4-9) 05/19/18 05:25 Eosinophils % (Manual) 2 % (0-6) 05/19/18 05:25 Plt Morphology Comment Normal (NORMAL) 05/19/18 05:25 RBC Morphology Normal (NORMAL) 05/19/18 05:25 Sodium 140 mmol/L (136-145) 05/19/18 05:25 Corrected Sodium TNP 05/19/18 05:25 Potassium 3.8 mmol/L (3.5-5.1) 05/19/18 05:25 Chloride 106 mmol/L (98-107) 05/19/18 05:25 Carbon Dioxide 25.5 mmol/L (21-32) 05/19/18 05:25 BUN 8 mg/dL (7-18) 05/19/18 05:25 Creatinine 0.66 mg/dL (0.55-1.02) 05/19/18 05:25 Est GFR (MDRD) Af Amer > 60 (>60) 05/19/18 05:25 Est GFR (MDRD) Non-Af > 60 (>60) 05/19/18 05:25 Glucose 93 mg/dL (65-99) 05/19/18 05:25 Hemoglobin A1c 5.6 % 05/16/18 05:35 Calcium 8.7 mg/dL (8.5-10.1) 05/19/18 05:25 Corrected Calcium 9.8 mg/dL (8.5-10.1) 05/19/18 05:25 Magnesium 2.0 mg/dL (1.7-2.9) 05/17/18 05:37 Total Bilirubin 0.30 mg/dL (0.2-1.0) 05/19/18 05:25 AST 30 Units/L (15-37) 05/19/18 05:25 ALT 32 Units/L (12-78) 05/19/18 05:25 Alkaline Phosphatase 62 Units/L (46-116) 05/19/18 05:25 C-Reactive Protein 45.00 mg/L (0-3.0) H 05/18/18 04:47 Total Protein 6.3 g/dL (6.4-8.2) L 05/19/18 05:25 Albumin 2.6 g/dL (3.4-5.0) L 05/19/18 05:25 Globulin 3.7 g/dL (2.5-4.5) 05/19/18 05:25 Albumin/Globulin Ratio 0.7 Ratio (1.1-2.1) L 05/19/18 05:25 Prealbumin 16.0 mg/dL (18-35.7) L 05/18/18 04:47 Specimen Type Clean catch urine 05/15/18 23:48 Urine Color Dark yellow (YELLOW) 05/15/18 23:48 Urine Appearance Clear (CLEAR) 05/15/18 23:48 Urine pH 5.0 (5.0 - 8.0) 05/15/18 23:48 Ur Specific [place] 1.020 (1.000-1.030) 05/15/18 23:48 Urine Protein 1+ (NEGATIVE) 05/15/18 23:48 Urine Glucose (UA) Negative (NEGATIVE) 05/15/18 23:48 Urine Ketones Negative (NEGATIVE) 05/15/18 23:48 Urine Occult Blood 4+ (NEGATIVE) 05/15/18 23:48 Urine Nitrite Negative (NEGATIVE) 05/15/18 23:48 Urine Bilirubin Negative (NEGATIVE) 05/15/18 23:48 Urine Urobilinogen Normal (NORMAL) 05/15/18 23:48 Ur Leukocyte Esterase 1+ (NEGATIVE) 05/15/18 23:48 Urine RBC 3-5 /HPF (NONE SEEN) 05/15/18 23:48 Urine WBC 5-10 /HPF (NONE SEEN) 05/15/18 23:48 Ur Squamous Epith Cells Moderate /HPF (NEGATIVE) 05/15/18 23:48 Amorphous Sediment Trace /HPF (NEGATIVE) 05/15/18 23:48 Urine Bacteria Trace /HPF (NEGATIVE) 05/15/18 23:48 Urine Mucus Moderate /HPF (NEGATIVE) 05/15/18 23:48 Ur Culture Indicated? Yes/culture set up 05/15/18 23:48 Stool Description 50g,brown,semi-solid 05/16/18 19:01 Stl Occult Blood (IFOB) Positive (NEGATIVE) A 05/16/18 19:01 Stool for White Cells Positive (NEGATIVE) A 05/16/18 19:01 Stl C. diff Tox B Gene Negative (NEGATIVE) 05/16/18 19:01 Stl C. diff [id number] Negative (NEGATIVE) 05/16/18 19:01 Stool H. pylori Ag Negative (NEGATIVE) 05/16/18 19:01 - Plan (1) Near syncope Status: Acute Plan: BP CONTROL, SUPPLEMENTAL O2 PRN. GENTLE IV HYDRATION WITH ELECTROLYTE REPLACEMENT. PAIN AND NAUSEA CONTROL, STOOL STUDIES. IV ROCEPHIN FOR UTI, CULTURE COLLECTED (2) Dehydration Status: Acute Plan: GENTLE IV HYDRATION, CONTINUE TO MONITOR (3) Hypertension Status: Acute Qualifiers: Hypertension type: essential hypertension Qualified Code(s): I10 - Essential (primary) hypertension (4) Hypokalemia Status: Acute (5) Hyponatremia Status: Acute (6) Nausea, vomiting and diarrhea Status: Acute (7) Right femoral fracture Status: Acute Qualifiers: Encounter type: subsequent encounter Femur location: unspecified portion of femur Fracture type: closed Fracture morphology: unspecified fracture morphology Fracture healing: with routine healing Qualified Code(s): S72.91XD - Unspecified fracture of right femur, subsequent encounter for closed fracture with routine healing (8) Right humeral fracture Status: Acute Qualifiers: Encounter type: subsequent encounter Fracture type: closed Fracture morphology: comminuted Fracture alignment: displaced Fracture healing: with routine healing (9) Generalized weakness Status: Acute Plan: TPN, ALBUMIN, PT, CONTINUE TO MONITOR
[2018-05-20] MEDS: KLONOPIN TAB 1 MG PO SCH ×2 (00:02→13:44)
[2018-05-20] MEDS: NS + KCL 20 MEQ/L 1,000 ML IV PRN (05:21)
[2018-05-20 05:29] LABS: BASOPHILS % (AUTO) 0.7 % (0.2-1.0); EOSINOPHILS # (AUTO) 0.2 x10^3/uL (0.0-0.2); EOSINOPHILS % (AUTO) 3.4 % (0.9-2.9); HEMATOCRIT 29.4 % (36.0-47.0); HEMOGLOBIN 9.9 g/dL (12.0-16.0); LYMPHOCYTES # (AUTO) 1.5 X10^3/uL (1.3-2.9); LYMPHOCYTES % (AUTO) 33.1 % (21.0-51.0); MEAN CORPUSCULAR HEMOGLOBIN 27.9 pg (27.0-34.0); MEAN CORPUSCULAR HGB CONC 33.6 g/dL (33.0-35.0); MEAN CORPUSCULAR VOLUME 83.1 fL (80.0-100.0); MEAN PLATELET VOLUME 8.8 fL (7.4-11.0); MONOCYTES # (AUTO) 0.4 x10^3/uL (0.3-0.8); MONOCYTES % (AUTO) 9.8 % (0.0-13.0); NEUTROPHILS # (AUTO) 2.4 x10^3/uL (2.2-4.8); PLATELET COUNT 180 X10^3/uL (150.0-450.0); RED BLOOD COUNT 3.54 X10^6/uL (3.5-5.4); WHITE BLOOD COUNT 4.5 X10^3/uL (3.6-10.0)
[2018-05-20 05:44] LABS: ALANINE AMINOTRANSFERASE 15 Units/L (12-78); ALBUMIN 2.9 g/dL (3.4-5.0); ALKALINE PHOSPHATASE 63 Units/L (46-116); ASPARTATE AMINO TRANSFERASE 26 Units/L (15-37); BLOOD UREA NITROGEN 10 mg/dL (7-18); CHLORIDE 106 mmol/L (98-107); COR CA(FOR HYPOALB) 9.9 mg/dL (8.5-10.1); CREATININE 0.94 mg/dL (0.55-1.02); SODIUM 140 mmol/L (136-145); TOTAL PROTEIN 6.6 g/dL (6.4-8.2); eGFR NON BLACK RACES > 60 (>60)
[2018-05-20] MEDS: ALBUMIN HUMAN 25%- 100 ML 100 ML IV SCH (08:37)
[2018-05-20] MEDS: BACTRIM DS TAB PO SCH ×2 (08:45→20:29)
[2018-05-20] MEDS: TOPROL XL PO SCH (08:45)
[2018-05-20] MEDS: ROCEPHIN VIAL 1 GRAM IVP SCH (08:45)
[2018-05-20] MEDS: SYNTHROID 50 mcg TAB PO SCH (08:45)
[2018-05-20] MEDS: ZESTRIL TAB 5 MG PO SCH (08:46)
[2018-05-20] MEDS: PROTONIX INJ 40 MG VIAL IVP SCH ×2 (08:46→20:27)
[2018-05-20] MEDS: LEVSIN/MAALOX/LIDOC VISC PO SCH ×4 (08:46→20:27)
[2018-05-20] MEDS: LOVENOX INJ 30 MG SYR SC SCH (08:48)
[2018-05-20] MEDS: PEPCID 20 MG IV PREMIX* 20 MG/50 ML BAG IV SCH ×2 (08:49→20:30)
[2018-05-20] MEDS: MEGACE PO SCH ×2 (08:55→20:29)
[2018-05-20] MEDS: PROCALAMINE 3 % 1,000 ML IV SCH (09:48)
[2018-05-20] MEDS: NYSTATIN CREAM TOP SCH ×2 (09:52→20:38)
[2018-05-20] MEDS: DIFLUCAN 200 MG IV PREMIX* 200 MG/100 ML BAG IV SCH (09:53)
[2018-05-20] MEDS ORDERED: XOPENEX 1.25 MG/3 ML NEBULE NEB SCH (10:45)
[2018-05-20] MEDS: XOPENEX 1.25 MG/3 ML NEBULE NEB SCH ×2 (12:11→17:02)
[2018-05-20] MEDS: OXYBUTYNIN CHLORIDE ER PO SCH (13:39)
[2018-05-20] MEDS: PERCOCET TAB 5/325 MG PO PRN ×2 (13:44→20:29)
--- NOTE | 2018-05-20 18:25 | PCM.PROG ---
Progress Note - Progress Note for Day of Date of Exam: 05/19/18 - Subjective Subjective: IS A 73 YEAR OLD PATIENT OF OURS WHO WAS ADMITTED ON 05/16/18 FOR DEHYDRATION, HYPOKALEMIA, HYPONATREMIA, DIARRHEA, AND MULTIPLE FRACTURES. TODAY, SHE IS ALERT AND ORIENTED, LYING IN BED ON MORNING ROUNDS. SHE CONTINUES WITH COMPLAINTS OF WEAKNESS, BUT REPORTS THAT ABDOMINAL PAIN HAS SLIGHTLY IMPROVED SINCE YESTERDAY. SHE REPORTS RECENTLY BEING DISCHARGED FROM THE HOSPITAL IN [facility] S/P FALL WITH RIGHT SHOULDER, RIGHT HIP, AND PELVIS FRACTURES. ON EXAMINATION, HEART IS REGULAR IN RATE AND RHYTHM. BILATERAL LUNGS ARE NOTED WITH DIMINISHED LUNG SOUNDS THROUGHOUT. ABDOMEN IS NOTED TO BE DISTENDED WITH MILD, DIFFUSE TENDERNESS TO PALPATION. SHE IS WEARING A SLING TO THE RIGHT SHOULDER. HER VITALS THIS MORNING ARE 98.0-64-18-97%-123/57. LABS WERE OBTAINED. ABNORMAL LAB VALUES INCLUDE THE FOLLOWING: RBC 3.45, HGB 9.6, HCT 28.7, TOTAL PROTEIN 6.3, ALBUMIN 2.6. STOOL CULTURE REPORTS GROWTH OF YEAST. TODAY, WE WILL START DIFLUCAN 200MG IV DAILY, NYSTATIN CREAM BID. SHE CONTINUES WITH IV HYDRATION, TPN, AND ALBUMIN. PHYSICAL THERAPY IS WORKING WITH PATIENT. OTHERWISE, WE WILL CONTINUE WITH CURRENT PLAN OF CARE TODAY. WE PLAN TO FOLLOW UP WITH AM LABS AND CONTINUE TO MONITOR. - Past Medical Family Social History Past Med/Fam/Surg Hx: No changes since H&P Allergies: Allergies Fish Containing Products Allergy (Verified 05/19/18 12:23) iodine Allergy (Verified 05/16/18 00:29) levofloxacin Allergy (Verified 05/15/18 22:49) Penicillins Allergy (Verified 05/15/18 22:49) - Review of Systems ROS: No change since H&P - Vital Signs and I&O's Vital Signs: Temperature 97.7 F Pulse Rate [Left Brachial] 71 Pulse Rate [Brachial] 87 Pulse Rate 63 Respiratory Rate 18 Blood Pressure [Left Arm] 108/54 Blood Pressure [Left Calf] 114/59 Blood Pressure 120/69 O2 Sat by Pulse Oximetry 96 Intake and Output: Intake & Output 05/18/18 05/19/18 05/20/18 05/21/18 11:59 11:59 11:59 11:59 Intake Total 3050 / 3050 3315 / 3315 2700 / 2700 500 / 500 Output Total 1500 / 1500 Balance 3050 / 3050 3315 / 3315 1200 / 1200 500 / 500 - Physical Exam Oriented: Person, Place Eyes: Normal Ear: Normal Nose: Normal Throat: Normal Respiratory: Generalized, Diminished Cardiovascular: Normal. negative: Murmur : Normal Auscultation: Bowel Sounds: Increased Palpation: Normal Tenderness: Diffuse, Mild Skin: Decreased Turgur Musculoskeletal: Right, Shoulder, Hip, Back:Lumbar, Swelling, Tender, Sensory Deficit, Instability Mood Description: Flat Affect: Depressed Speech Pattern: Appropriate - Laboratory and Diagnostics Result Diagrams: 05/20/18 04:30 05/20/18 04:30 Labs: 05/16/18 19:01 Stool Stool Culture - Final 05/16/18 19:01 Stool - Final 05/15/18 23:48 Urine,Clean Catch Urine Culture - Final Laboratory WBC 4.5 X10^3/uL (3.6-10.0) 05/20/18 04:30 RBC 3.54 X10^6/uL (3.5-5.4) 05/20/18 04:30 Hgb 9.9 g/dL (12.0-16.0) L 05/20/18 04:30 Hct 29.4 % (36.0-47.0) L 05/20/18 04:30 MCV 83.1 fL (80.0-100.0) 05/20/18 04:30 MCH 27.9 pg (27.0-34.0) 05/20/18 04:30 MCHC 33.6 g/dL (33.0-35.0) 05/20/18 04:30 RDW 18.0 % (11.6-16.5) H 05/20/18 04:30 Plt Count 180 X10^3/uL (150.0-450.0) 05/20/18 04:30 Plt Count Comment Adequate (ADEQUATE) 05/19/18 05:25 MPV 8.8 fL (7.4-11.0) 05/20/18 04:30 Neut % (Auto) 53.0 % (42.0-75.0) 05/20/18 04:30 Lymph % (Auto) 33.1 % (21.0-51.0) 05/20/18 04:30 [place] % (Auto) 9.8 % (0.0-13.0) 05/20/18 04:30 Eos % (Auto) 3.4 % (0.9-2.9) H 05/20/18 04:30 Baso % (Auto) 0.7 % (0.2-1.0) 05/20/18 04:30 Neut # (Auto) 2.4 x10^3/uL (2.2-4.8) 05/20/18 04:30 Lymph # (Auto) 1.5 X10^3/uL (1.3-2.9) 05/20/18 04:30 [place] # (Auto) 0.4 x10^3/uL (0.3-0.8) 05/20/18 04:30 Eos # (Auto) 0.2 x10^3/uL (0.0-0.2) 05/20/18 04:30 Baso # (Auto) 0.0 X10^3/uL (0.0-0.1) 05/20/18 04:30 Absolute Nucleated RBC 0.0 /100WBC 05/20/18 04:30 Total Counted 100 05/19/18 05:25 Neutrophils % (Manual) 71 % (39-76) 05/19/18 05:25 Lymphocytes % (Manual) 22 % (13-43) 05/19/18 05:25 Monocytes % (Manual) 5 % (4-9) 05/19/18 05:25 Eosinophils % (Manual) 2 % (0-6) 05/19/18 05:25 Plt Morphology Comment Normal (NORMAL) 05/19/18 05:25 RBC Morphology Normal (NORMAL) 05/19/18 05:25 Sodium 140 mmol/L (136-145) 05/20/18 04:30 Corrected Sodium TNP 05/20/18 04:30 Potassium 4.3 mmol/L (3.5-5.1) 05/20/18 04:30 Chloride 106 mmol/L (98-107) 05/20/18 04:30 Carbon Dioxide 23.0 mmol/L (21-32) 05/20/18 04:30 BUN 10 mg/dL (7-18) 05/20/18 04:30 Creatinine 0.94 mg/dL (0.55-1.02) 05/20/18 04:30 Est GFR (MDRD) Af Amer > 60 (>60) 05/20/18 04:30 Est GFR (MDRD) Non-Af > 60 (>60) 05/20/18 04:30 Glucose 81 mg/dL (65-99) 05/20/18 04:30 Hemoglobin A1c 5.6 % 05/16/18 05:35 Calcium 9.0 mg/dL (8.5-10.1) 05/20/18 04:30 Corrected Calcium 9.9 mg/dL (8.5-10.1) 05/20/18 04:30 Magnesium 2.0 mg/dL (1.7-2.9) 05/17/18 05:37 Total Bilirubin 0.20 mg/dL (0.2-1.0) 05/20/18 04:30 AST 26 Units/L (15-37) 05/20/18 04:30 ALT 15 Units/L (12-78) 05/20/18 04:30 Alkaline Phosphatase 63 Units/L (46-116) 05/20/18 04:30 C-Reactive Protein 45.00 mg/L (0-3.0) H 05/18/18 04:47 Total Protein 6.6 g/dL (6.4-8.2) 05/20/18 04:30 Albumin 2.9 g/dL (3.4-5.0) L 05/20/18 04:30 Globulin 3.7 g/dL (2.5-4.5) 05/20/18 04:30 Albumin/Globulin Ratio 0.8 Ratio (1.1-2.1) L 05/20/18 04:30 Prealbumin 16.0 mg/dL (18-35.7) L 05/18/18 04:47 Specimen Type Clean catch urine 05/15/18 23:48 Urine Color Dark yellow (YELLOW) 05/15/18 23:48 Urine Appearance Clear (CLEAR) 05/15/18 23:48 Urine pH 5.0 (5.0 - 8.0) 05/15/18 23:48 Ur Specific [place] 1.020 (1.000-1.030) 05/15/18 23:48 Urine Protein 1+ (NEGATIVE) 05/15/18 23:48 Urine Glucose (UA) Negative (NEGATIVE) 05/15/18 23:48 Urine Ketones Negative (NEGATIVE) 05/15/18 23:48 Urine Occult Blood 4+ (NEGATIVE) 05/15/18 23:48 Urine Nitrite Negative (NEGATIVE) 05/15/18 23:48 Urine Bilirubin Negative (NEGATIVE) 05/15/18 23:48 Urine Urobilinogen Normal (NORMAL) 05/15/18 23:48 Ur Leukocyte Esterase 1+ (NEGATIVE) 05/15/18 23:48 Urine RBC 3-5 /HPF (NONE SEEN) 05/15/18 23:48 Urine WBC 5-10 /HPF (NONE SEEN) 05/15/18 23:48 Ur Squamous Epith Cells Moderate /HPF (NEGATIVE) 05/15/18 23:48 Amorphous Sediment Trace /HPF (NEGATIVE) 05/15/18 23:48 Urine Bacteria Trace /HPF (NEGATIVE) 05/15/18 23:48 Urine Mucus Moderate /HPF (NEGATIVE) 05/15/18 23:48 Ur Culture Indicated? Yes/culture set up 05/15/18 23:48 Stool Description 50g,brown,semi-solid 05/16/18 19:01 Stl Occult Blood (IFOB) Positive (NEGATIVE) A 05/16/18 19:01 Stool for White Cells Positive (NEGATIVE) A 05/16/18 19:01 Stl C. diff Tox B Gene Negative (NEGATIVE) 05/16/18 19:01 Stl C. diff [id number] Negative (NEGATIVE) 05/16/18 19:01 Stool H. pylori Ag Negative (NEGATIVE) 05/16/18 19:01 - Plan (1) Near syncope Status: Acute Plan: BP CONTROL, SUPPLEMENTAL O2 PRN. GENTLE IV HYDRATION WITH ELECTROLYTE REPLACEMENT. PAIN AND NAUSEA CONTROL, STOOL STUDIES. IV ROCEPHIN FOR UTI, CULTURE COLLECTED (2) Dehydration Status: Acute Plan: GENTLE IV HYDRATION, CONTINUE TO MONITOR (3) Hypertension Status: Acute Qualifiers: Hypertension type: essential hypertension Qualified Code(s): I10 - Essential (primary) hypertension (4) Hypokalemia Status: Acute (5) Hyponatremia Status: Acute (6) Nausea, vomiting and diarrhea Status: Acute (7) Right femoral fracture Status: Acute Qualifiers: Encounter type: subsequent encounter Femur location: unspecified portion of femur Fracture type: closed Fracture morphology: unspecified fracture morphology Fracture healing: with routine healing Qualified Code(s): S72.91XD - Unspecified fracture of right femur, subsequent encounter for closed fracture with routine healing (8) Right humeral fracture Status: Acute Qualifiers: Encounter type: subsequent encounter Fracture type: closed Fracture morphology: comminuted Fracture alignment: displaced Fracture healing: with routine healing (9) Generalized weakness Status: Acute Plan: TPN, ALBUMIN, PT, CONTINUE TO MONITOR (10) Yeast in stool Status: Acute Plan: DIFLUCAN 200MG IV DAILY, NYSTATIN CREAM BID
[2018-05-21] MEDS: KLONOPIN TAB 1 MG PO SCH ×2 (00:15→13:20)
[2018-05-21] MEDS: XOPENEX 1.25 MG/3 ML NEBULE NEB SCH ×4 (00:21→17:22)
[2018-05-21] MEDS: NS + KCL 20 MEQ/L 1,000 ML IV PRN ×2 (03:15→18:25)
[2018-05-21] MEDS: PERCOCET TAB 5/325 MG PO PRN ×3 (05:13→21:15)
[2018-05-21 05:32] LABS: BASOPHILS # (AUTO) 0.1 X10^3/uL (0.0-0.1); EOSINOPHILS # (AUTO) 0.1 x10^3/uL (0.0-0.2); EOSINOPHILS % (AUTO) 1.5 % (0.9-2.9); HEMATOCRIT 31.4 % (36.0-47.0); HEMOGLOBIN 10.4 g/dL (12.0-16.0); LYMPHOCYTES # (AUTO) 1.7 X10^3/uL (1.3-2.9); LYMPHOCYTES % (AUTO) 32.2 % (21.0-51.0); MEAN CORPUSCULAR HEMOGLOBIN 27.8 pg (27.0-34.0); MEAN CORPUSCULAR VOLUME 84.1 fL (80.0-100.0); MEAN PLATELET VOLUME 8.9 fL (7.4-11.0); MONOCYTES # (AUTO) 0.5 x10^3/uL (0.3-0.8); MONOCYTES % (AUTO) 8.8 % (0.0-13.0); NEUTROPHILS % (AUTO) 56.5 % (42.0-75.0); PLATELET COUNT 217 X10^3/uL (150.0-450.0); RED BLOOD COUNT 3.73 X10^6/uL (3.5-5.4); RED CELL DISTRIBUTION WIDTH 18.5 % (11.6-16.5); WHITE BLOOD COUNT 5.3 X10^3/uL (3.6-10.0)
[2018-05-21 05:45] LABS: ALBUMIN 3.5 g/dL (3.4-5.0); ALKALINE PHOSPHATASE 62 Units/L (46-116); ASPARTATE AMINO TRANSFERASE 28 Units/L (15-37); BLOOD UREA NITROGEN 10 mg/dL (7-18); CALCIUM 9.4 mg/dL (8.5-10.1); CARBON DIOXIDE 22.7 mmol/L (21-32); CHLORIDE 105 mmol/L (98-107); CREATININE 1.08 mg/dL (0.55-1.02); SODIUM 139 mmol/L (136-145); TOTAL PROTEIN 7.4 g/dL (6.4-8.2); eGFR NON BLACK RACES 53 (>60)
[2018-05-21 05:54] LABS: ALANINE AMINOTRANSFERASE 17 Units/L (12-78)
[2018-05-21] MEDS: PEPCID 20 MG IV PREMIX* 20 MG/50 ML BAG IV SCH ×2 (09:06→21:11)
[2018-05-21] MEDS: DIFLUCAN 200 MG IV PREMIX* 200 MG/100 ML BAG IV SCH (09:07)
[2018-05-21] MEDS: PROTONIX INJ 40 MG VIAL IVP SCH ×2 (09:08→21:10)
[2018-05-21] MEDS: LEVSIN/MAALOX/LIDOC VISC PO SCH ×4 (09:08→21:09)
[2018-05-21] MEDS: ROCEPHIN VIAL 1 GRAM IVP SCH (09:08)
[2018-05-21] MEDS: BACTRIM DS TAB PO SCH ×2 (09:10→21:10)
[2018-05-21] MEDS: TOPROL XL PO SCH (09:10)
[2018-05-21] MEDS: MEGACE PO SCH ×2 (09:20→21:10)
[2018-05-21] MEDS: ZESTRIL TAB 5 MG PO SCH (09:21)
[2018-05-21] MEDS: OXYBUTYNIN CHLORIDE ER PO SCH (09:22)
[2018-05-21] MEDS: SYNTHROID 50 mcg TAB PO SCH (09:22)
[2018-05-21] MEDS: ALBUMIN HUMAN 25%- 100 ML 100 ML IV SCH (09:22)
[2018-05-21] MEDS: LOVENOX INJ 30 MG SYR SC SCH (09:28)
[2018-05-21] MEDS: NYSTATIN CREAM TOP SCH ×2 (09:29→21:11)
[2018-05-21] MEDS: PROCALAMINE 3 % 1,000 ML IV SCH (10:02)
[2018-05-21] MEDS ORDERED: LEXAPRO ONE (11:49)
[2018-05-21] MEDS: LEXAPRO PO SCH (11:55)
--- NOTE | 2018-05-21 20:39 | PCM.PROG ---
Progress Note - Progress Note for Day of Date of Exam: 05/20/18 - Subjective Subjective: IS A 73 YEAR OLD PATIENT OF OURS WHO WAS ADMITTED ON 05/16/18 FOR DEHYDRATION, HYPOKALEMIA, HYPONATREMIA, DIARRHEA, AND MULTIPLE FRACTURES. TODAY, SHE IS ALERT AND ORIENTED, LYING IN BED ON MORNING ROUNDS. SHE CONTINUES WITH COMPLAINTS OF WEAKNESS. SHE ALSO REPORTS FREQUENT URINATION AND SHORTNESS OF BREATH TODAY. SHE RECENTLY OBTAINED A RIGHT SHOULDER, RIGHT HIP, AND PELVIS FRACTURES FOLLOWING A FALL AT HOME. ON EXAMINATION, HEART IS REGULAR IN RATE AND RHYTHM. BILATERAL LUNGS ARE NOTED WITH SCATTERED RHONCHI THROUGHOUT. ABDOMEN IS NOTED TO BE DISTENDED WITH MILD, DIFFUSE TENDERNESS TO PALPATION. SHE IS WEARING A SLING TO THE RIGHT SHOULDER. HER VITALS THIS MORNING ARE 99. 2-62-20-94%-131/59. LABS WERE OBTAINED. ABNORMAL LAB VALUES INCLUDE THE FOLLOWING: HGB 9.9, HCT 29.4, ALBUMIN 2.9. STOOL CULTURE REPORTS GROWTH OF YEAST. TODAY, WE WILL START OXYBUTININ ER 10MG PO DAILY AND XOPENEX NEB TREATMENTS. PHYSICAL THERAPY IS WORKING WITH PATIENT. OTHERWISE, WE WILL CONTINUE WITH CURRENT PLAN OF CARE TODAY. WE PLAN TO FOLLOW UP WITH AM LABS AND CONTINUE TO MONITOR. - Past Medical Family Social History Past Med/Fam/Surg Hx: No changes since H&P Allergies: Allergies Fish Containing Products Allergy (Verified 05/19/18 12:23) iodine Allergy (Verified 05/16/18 00:29) levofloxacin Allergy (Verified 05/15/18 22:49) Penicillins Allergy (Verified 05/15/18 22:49) - Review of Systems ROS: No change since H&P - Vital Signs and I&O's Vital Signs: Temperature 98 F Pulse Rate [Left Brachial] 76 Pulse Rate [Brachial] 87 Pulse Rate 67 Respiratory Rate 18 Blood Pressure [Left Arm] 127/56 Blood Pressure [Left Calf] 114/59 Blood Pressure 120/69 O2 Sat by Pulse Oximetry 94 Intake and Output: Intake & Output 05/19/18 05/20/18 05/21/18 05/22/18 11:59 11:59 11:59 11:59 Intake Total 3315 / 3315 2700 / 2700 2717 / 2717 900 / 900 Output Total 1500 / 1500 400 / 400 Balance 3315 / 3315 1200 / 1200 2717 / 2717 500 / 500 - Physical Exam Oriented: Person, Place Eyes: Normal Ear: Normal Nose: Normal Throat: Normal Respiratory: Generalized, Diminished, Rhonchi Cardiovascular: Normal. negative: Murmur : Normal Auscultation: Bowel Sounds: Increased Tenderness: Diffuse, Mild Skin: Decreased Turgur Musculoskeletal: Right, Shoulder, Hip, Back:Lumbar, Swelling, Tender, Sensory Deficit, Instability Mood Description: Flat Affect: Depressed Speech Pattern: Appropriate - Laboratory and Diagnostics Result Diagrams: 05/21/18 04:17 05/21/18 04:17 Labs: 05/16/18 19:01 Stool Stool Culture - Final 05/16/18 19:01 Stool - Final 05/15/18 23:48 Urine,Clean Catch Urine Culture - Final Laboratory WBC 5.3 X10^3/uL (3.6-10.0) 05/21/18 04:17 RBC 3.73 X10^6/uL (3.5-5.4) 05/21/18 04:17 Hgb 10.4 g/dL (12.0-16.0) L 05/21/18 04:17 Hct 31.4 % (36.0-47.0) L 05/21/18 04:17 MCV 84.1 fL (80.0-100.0) 05/21/18 04:17 MCH 27.8 pg (27.0-34.0) 05/21/18 04:17 MCHC 33.0 g/dL (33.0-35.0) 05/21/18 04:17 RDW 18.5 % (11.6-16.5) H 05/21/18 04:17 Plt Count 217 X10^3/uL (150.0-450.0) 05/21/18 04:17 Plt Count Comment Adequate (ADEQUATE) 05/19/18 05:25 MPV 8.9 fL (7.4-11.0) 05/21/18 04:17 Neut % (Auto) 56.5 % (42.0-75.0) 05/21/18 04:17 Lymph % (Auto) 32.2 % (21.0-51.0) 05/21/18 04:17 [place] % (Auto) 8.8 % (0.0-13.0) 05/21/18 04:17 Eos % (Auto) 1.5 % (0.9-2.9) 05/21/18 04:17 Baso % (Auto) 1.0 % (0.2-1.0) 05/21/18 04:17 Neut # (Auto) 3.0 x10^3/uL (2.2-4.8) 05/21/18 04:17 Lymph # (Auto) 1.7 X10^3/uL (1.3-2.9) 05/21/18 04:17 [place] # (Auto) 0.5 x10^3/uL (0.3-0.8) 05/21/18 04:17 Eos # (Auto) 0.1 x10^3/uL (0.0-0.2) 05/21/18 04:17 Baso # (Auto) 0.1 X10^3/uL (0.0-0.1) 05/21/18 04:17 Absolute Nucleated RBC 0.0 /100WBC 05/21/18 04:17 Total Counted 100 05/19/18 05:25 Neutrophils % (Manual) 71 % (39-76) 05/19/18 05:25 Lymphocytes % (Manual) 22 % (13-43) 05/19/18 05:25 Monocytes % (Manual) 5 % (4-9) 05/19/18 05:25 Eosinophils % (Manual) 2 % (0-6) 05/19/18 05:25 Plt Morphology Comment Normal (NORMAL) 05/19/18 05:25 RBC Morphology Normal (NORMAL) 05/19/18 05:25 Sodium 139 mmol/L (136-145) 05/21/18 04:17 Corrected Sodium TNP 05/21/18 04:17 Potassium 4.5 mmol/L (3.5-5.1) 05/21/18 04:17 Chloride 105 mmol/L (98-107) 05/21/18 04:17 Carbon Dioxide 22.7 mmol/L (21-32) 05/21/18 04:17 BUN 10 mg/dL (7-18) 05/21/18 04:17 Creatinine 1.08 mg/dL (0.55-1.02) H 05/21/18 04:17 Est GFR (MDRD) Af Amer > 60 (>60) 05/21/18 04:17 Est GFR (MDRD) Non-Af 53 (>60) L 05/21/18 04:17 Glucose 95 mg/dL (65-99) 05/21/18 04:17 Hemoglobin A1c 5.6 % 05/16/18 05:35 Calcium 9.4 mg/dL (8.5-10.1) 05/21/18 04:17 Corrected Calcium TNP 05/21/18 04:17 Magnesium 2.2 mg/dL (1.7-2.9) 05/21/18 04:17 Total Bilirubin 0.30 mg/dL (0.2-1.0) 05/21/18 04:17 AST 28 Units/L (15-37) 05/21/18 04:17 ALT 17 Units/L (12-78) 05/21/18 04:17 Alkaline Phosphatase 62 Units/L (46-116) 05/21/18 04:17 C-Reactive Protein 45.00 mg/L (0-3.0) H 05/18/18 04:47 Total Protein 7.4 g/dL (6.4-8.2) 05/21/18 04:17 Albumin 3.5 g/dL (3.4-5.0) 05/21/18 04:17 Globulin 3.9 g/dL (2.5-4.5) 05/21/18 04:17 Albumin/Globulin Ratio 0.9 Ratio (1.1-2.1) L 05/21/18 04:17 Prealbumin 16.0 mg/dL (18-35.7) L 05/18/18 04:47 Specimen Type Clean catch urine 05/15/18 23:48 Urine Color Dark yellow (YELLOW) 05/15/18 23:48 Urine Appearance Clear (CLEAR) 05/15/18 23:48 Urine pH 5.0 (5.0 - 8.0) 05/15/18 23:48 Ur Specific [place] 1.020 (1.000-1.030) 05/15/18 23:48 Urine Protein 1+ (NEGATIVE) 05/15/18 23:48 Urine Glucose (UA) Negative (NEGATIVE) 05/15/18 23:48 Urine Ketones Negative (NEGATIVE) 05/15/18 23:48 Urine Occult Blood 4+ (NEGATIVE) 05/15/18 23:48 Urine Nitrite Negative (NEGATIVE) 05/15/18 23:48 Urine Bilirubin Negative (NEGATIVE) 05/15/18 23:48 Urine Urobilinogen Normal (NORMAL) 05/15/18 23:48 Ur Leukocyte Esterase 1+ (NEGATIVE) 05/15/18 23:48 Urine RBC 3-5 /HPF (NONE SEEN) 05/15/18 23:48 Urine WBC 5-10 /HPF (NONE SEEN) 05/15/18 23:48 Ur Squamous Epith Cells Moderate /HPF (NEGATIVE) 05/15/18 23:48 Amorphous Sediment Trace /HPF (NEGATIVE) 05/15/18 23:48 Urine Bacteria Trace /HPF (NEGATIVE) 05/15/18 23:48 Urine Mucus Moderate /HPF (NEGATIVE) 05/15/18 23:48 Ur Culture Indicated? Yes/culture set up 05/15/18 23:48 Stool Description 50g,brown,semi-solid 05/16/18 19:01 Stl Occult Blood (IFOB) Positive (NEGATIVE) A 05/16/18 19:01 Stool for White Cells Positive (NEGATIVE) A 05/16/18 19:01 Stl C. diff Tox B Gene Negative (NEGATIVE) 05/16/18 19:01 Stl C. diff [id number] Negative (NEGATIVE) 05/16/18 19:01 Stool H. pylori Ag Negative (NEGATIVE) 05/16/18 19:01 - Plan (1) Near syncope Status: Acute Plan: BP CONTROL, SUPPLEMENTAL O2 PRN. GENTLE IV HYDRATION WITH ELECTROLYTE REPLACEMENT. PAIN AND NAUSEA CONTROL, STOOL STUDIES. IV ROCEPHIN FOR UTI, CULTURE COLLECTED (2) Dehydration Status: Acute Plan: GENTLE IV HYDRATION, CONTINUE TO MONITOR (3) Hypertension Status: Acute Qualifiers: Hypertension type: essential hypertension Qualified Code(s): I10 - Essential (primary) hypertension (4) Hypokalemia Status: Acute (5) Hyponatremia Status: Acute (6) Nausea, vomiting and diarrhea Status: Acute (7) Right femoral fracture Status: Acute Qualifiers: Encounter type: subsequent encounter Femur location: unspecified portion of femur Fracture type: closed Fracture morphology: unspecified fracture morphology Fracture healing: with routine healing Qualified Code(s): S72.91XD - Unspecified fracture of right femur, subsequent encounter for closed fracture with routine healing (8) Right humeral fracture Status: Acute Qualifiers: Encounter type: subsequent encounter Fracture type: closed Fracture morphology: comminuted Fracture alignment: displaced Fracture healing: with routine healing (9) Generalized weakness Status: Acute Plan: TPN, ALBUMIN, PT, CONTINUE TO MONITOR (10) Yeast in stool Status: Acute Plan: DIFLUCAN 200MG IV DAILY, NYSTATIN CREAM BID
[2018-05-21] MEDS ORDERED: COLACE CAP 100 MG PO SCH (21:00)
[2018-05-21] MEDS ORDERED: MILK OF MAGNESIA PO SCH (21:00)
[2018-05-22] MEDS: XOPENEX 1.25 MG/3 ML NEBULE NEB SCH ×4 (00:02→16:38)
[2018-05-22] MEDS: KLONOPIN TAB 1 MG PO SCH ×3 (00:21→21:00)
[2018-05-22] MEDS: NS + KCL 20 MEQ/L 1,000 ML IV PRN (05:33)
[2018-05-22 06:03] LABS: BASOPHILS # (AUTO) 0.1 X10^3/uL (0.0-0.1); BASOPHILS % (AUTO) 0.8 % (0.2-1.0); EOSINOPHILS # (AUTO) 0.2 x10^3/uL (0.0-0.2); HEMATOCRIT 29.7 % (36.0-47.0); HEMOGLOBIN 9.9 g/dL (12.0-16.0); LYMPHOCYTES # (AUTO) 2.2 X10^3/uL (1.3-2.9); LYMPHOCYTES % (AUTO) 30.4 % (21.0-51.0); MEAN CORPUSCULAR HEMOGLOBIN 27.9 pg (27.0-34.0); MEAN CORPUSCULAR HGB CONC 33.4 g/dL (33.0-35.0); MEAN CORPUSCULAR VOLUME 83.5 fL (80.0-100.0); MEAN PLATELET VOLUME 8.5 fL (7.4-11.0); MONOCYTES # (AUTO) 0.6 x10^3/uL (0.3-0.8); MONOCYTES % (AUTO) 8.9 % (0.0-13.0); NEUTROPHILS # (AUTO) 4.1 x10^3/uL (2.2-4.8); NEUTROPHILS % (AUTO) 56.9 % (42.0-75.0); PLATELET COUNT 217 X10^3/uL (150.0-450.0); RED BLOOD COUNT 3.55 X10^6/uL (3.5-5.4); RED CELL DISTRIBUTION WIDTH 18.8 % (11.6-16.5); WHITE BLOOD COUNT 7.2 X10^3/uL (3.6-10.0)
[2018-05-22 06:29] LABS: ALANINE AMINOTRANSFERASE 14 Units/L (12-78); ALBUMIN 3.7 g/dL (3.4-5.0); ALKALINE PHOSPHATASE 59 Units/L (46-116); ASPARTATE AMINO TRANSFERASE 28 Units/L (15-37); BLOOD UREA NITROGEN 11 mg/dL (7-18); CALCIUM 9.2 mg/dL (8.5-10.1); CARBON DIOXIDE 20.6 mmol/L (21-32); CHLORIDE 106 mmol/L (98-107); CREATININE 1.17 mg/dL (0.55-1.02); SODIUM 137 mmol/L (136-145); TOTAL PROTEIN 7.3 g/dL (6.4-8.2); eGFR NON BLACK RACES 48 (>60)
[2018-05-22] MEDS ORDERED: NS 1000 ML 1,000 ML ONE (06:39)
[2018-05-22] MEDS: NS 1000 ML 1,000 ML IV SCH ×2 (06:44→20:21)
[2018-05-22] MEDS ORDERED: LEXAPRO ONE (08:15)
[2018-05-22] MEDS: ALBUMIN HUMAN 25%- 100 ML 100 ML IV SCH (09:10)
[2018-05-22] MEDS: SYNTHROID 50 mcg TAB PO SCH (09:13)
[2018-05-22] MEDS: BACTRIM DS TAB PO SCH ×2 (09:13→20:57)
[2018-05-22] MEDS: LEXAPRO PO SCH (09:14)
[2018-05-22] MEDS: TOPROL XL PO SCH (09:14)
[2018-05-22] MEDS: MEGACE PO SCH ×2 (09:14→20:57)
[2018-05-22] MEDS: ROCEPHIN VIAL 1 GRAM IVP SCH (09:15)
[2018-05-22] MEDS: OXYBUTYNIN CHLORIDE ER PO SCH ×2 (09:15→22:07)
[2018-05-22] MEDS: PROTONIX INJ 40 MG VIAL IVP SCH ×2 (09:15→21:00)
[2018-05-22] MEDS: LEVSIN/MAALOX/LIDOC VISC PO SCH ×5 (09:16→21:01)
[2018-05-22] MEDS: LOVENOX INJ 30 MG SYR SC SCH (09:17)
[2018-05-22] MEDS: DIFLUCAN 200 MG IV PREMIX* 200 MG/100 ML BAG IV SCH (09:18)
[2018-05-22] MEDS: PEPCID 20 MG IV PREMIX* 20 MG/50 ML BAG IV SCH ×2 (09:18→22:00)
[2018-05-22] MEDS: ZESTRIL TAB 5 MG PO SCH (09:31)
[2018-05-22] MEDS: NYSTATIN CREAM TOP SCH ×2 (09:32→21:01)
[2018-05-22] MEDS: PROCALAMINE 3 % 1,000 ML IV SCH (09:46)
--- NOTE | 2018-05-22 11:11 | RAD ---
HISTORY: 73-year-old female with altered mental status. Study: Frontal view of the chest. Comparison: Chest radiograph 05/18/2018 Findings: Stable left subclavian central venous catheter. The trachea is midline. The cardiac silhouette is stably enlarged with low lung volumes. Continued prominence perihilar lung markings and interstitium The lungs are clear without focal consolidation, effusion or pneumothorax. Soft tissues are unremarkable. Osseous structures are unremarkable. IMPRESSION: 1. Cardiomegaly with findings suggesting COPD. Reported By:
--- NOTE | 2018-05-22 11:14 | CT ---
CT HEAD WITHOUT CONTRAST CLINICAL HISTORY: 73-year-old female with altered mental status and increased weakness. COMPARISON: CT head 05/16/2018. TECHNIQUE: Multiple, non-contrasted axial CT images were obtained from the skull base to the cranial vertex. Coronal and sagittal reformats were performed. FINDINGS: Study is mildly degraded secondary to patient motion. There are no abnormal intra- or extra-axial fluid collections, midline shift, or mass effect. Drew-white differentiation is normal. Global cortical involutional changes are present that are advanced for the patient's stated age. The ventricular system is mildly enlarged but commensurate with the degree of sulcal prominence. Periventricular and supraventricular white matter hypodensity is present that is nonspecific in appearance, but most likely to represent microvascular ischemic changes. Atherosclerotic vascular calcification is present within the carotid siphons. Unchanged shar cisterna magna. Polypoid mucosal thickening imaged maxillary sinuses. The remaining imaged paranasal sinuses, mastoid air cells, and tympanic spaces are clear. IMPRESSION: 1. No definite evidence of an acute intracranial process. If clinical concern persists for acute stroke and it would alter patient management, consider MRI/MRA brain. 2. Moderate microvascular white matter ischemic changes, with associated volume loss. Reported By:
[2018-05-22] MEDS: COLACE CAP 100 MG PO SCH ×2 (14:01→20:59)
[2018-05-22] MEDS: MILK OF MAGNESIA PO SCH ×2 (14:01→21:00)
[2018-05-22] MEDS: MIRALAX POWDER (1 DOSE 17 G) PO SCH (14:02)
[2018-05-22] MEDS: PERCOCET TAB 5/325 MG PO PRN ×2 (14:11→20:57)
[2018-05-23] MEDS: PROVENTIL NEB TX 0.083% 2.5MG/ 3ML NEB SCH ×5 (00:14→18:41)
[2018-05-23 05:04] LABS: BASOPHILS % (AUTO) 0.9 % (0.2-1.0); EOSINOPHILS # (AUTO) 0.3 x10^3/uL (0.0-0.2); EOSINOPHILS % (AUTO) 6.5 % (0.9-2.9); HEMATOCRIT 27.9 % (36.0-47.0); HEMOGLOBIN 9.3 g/dL (12.0-16.0); LYMPHOCYTES # (AUTO) 1.9 X10^3/uL (1.3-2.9); LYMPHOCYTES % (AUTO) 36.1 % (21.0-51.0); MEAN CORPUSCULAR HGB CONC 33.1 g/dL (33.0-35.0); MEAN CORPUSCULAR VOLUME 84.5 fL (80.0-100.0); MEAN PLATELET VOLUME 8.8 fL (7.4-11.0); MONOCYTES # (AUTO) 0.5 x10^3/uL (0.3-0.8); MONOCYTES % (AUTO) 9.6 % (0.0-13.0); NEUTROPHILS # (AUTO) 2.5 x10^3/uL (2.2-4.8); NEUTROPHILS % (AUTO) 46.9 % (42.0-75.0); PLATELET COUNT 205 X10^3/uL (150.0-450.0); RED BLOOD COUNT 3.31 X10^6/uL (3.5-5.4); RED CELL DISTRIBUTION WIDTH 18.9 % (11.6-16.5); WHITE BLOOD COUNT 5.3 X10^3/uL (3.6-10.0)
[2018-05-23 05:21] LABS: ALANINE AMINOTRANSFERASE 13 Units/L (12-78); ALBUMIN 3.7 g/dL (3.4-5.0); ALKALINE PHOSPHATASE 56 Units/L (46-116); ASPARTATE AMINO TRANSFERASE 26 Units/L (15-37); BLOOD UREA NITROGEN 11 mg/dL (7-18); CALCIUM 9.3 mg/dL (8.5-10.1); CARBON DIOXIDE 21.3 mmol/L (21-32); CHLORIDE 106 mmol/L (98-107); CREATININE 1.14 mg/dL (0.55-1.02); SODIUM 137 mmol/L (136-145); TOTAL PROTEIN 7.2 g/dL (6.4-8.2); eGFR NON BLACK RACES 50 (>60)
[2018-05-23] MEDS ORDERED: LEXAPRO ONE (08:08)
[2018-05-23] MEDS: ALBUMIN HUMAN 25%- 100 ML 100 ML IV SCH (08:31)
[2018-05-23] MEDS: LEVSIN/MAALOX/LIDOC VISC PO SCH ×5 (08:31→20:23)
[2018-05-23] MEDS: BACTRIM DS TAB PO SCH ×2 (08:32→20:22)
[2018-05-23] MEDS: COLACE CAP 100 MG PO SCH ×2 (08:32→20:23)
[2018-05-23] MEDS: LEXAPRO PO SCH (08:32)
[2018-05-23] MEDS: ZESTRIL TAB 5 MG PO SCH (08:33)
[2018-05-23] MEDS: KLONOPIN TAB 1 MG PO SCH ×2 (08:33→20:23)
[2018-05-23] MEDS: MILK OF MAGNESIA PO SCH ×4 (08:33→20:24)
[2018-05-23] MEDS: DIFLUCAN 200 MG IV PREMIX* 200 MG/100 ML BAG IV SCH (08:33)
[2018-05-23] MEDS: MEGACE PO SCH ×2 (08:33→20:21)
[2018-05-23] MEDS: SYNTHROID 50 mcg TAB PO SCH (08:33)
[2018-05-23] MEDS: ROCEPHIN VIAL 1 GRAM IVP SCH (08:34)
[2018-05-23] MEDS: PEPCID 20 MG IV PREMIX* 20 MG/50 ML BAG IV SCH ×2 (08:34→20:21)
[2018-05-23] MEDS: MIRALAX POWDER (1 DOSE 17 G) PO SCH (08:34)
[2018-05-23] MEDS: PROTONIX INJ 40 MG VIAL IVP SCH ×2 (08:34→20:24)
[2018-05-23] MEDS: TOPROL XL PO SCH (08:34)
[2018-05-23] MEDS: LOVENOX INJ 30 MG SYR SC SCH (08:54)
[2018-05-23] MEDS: NYSTATIN CREAM TOP SCH ×2 (08:55→20:23)
[2018-05-23] MEDS: PERCOCET TAB 5/325 MG PO PRN ×2 (09:01→16:56)
[2018-05-23] MEDS: PROCALAMINE 3 % 1,000 ML IV SCH ×2 (09:02→16:40)
[2018-05-23] MEDS: NS 1000 ML 1,000 ML IV SCH (09:02)
[2018-05-23] MEDS ORDERED: NS 1000 ML 1,000 ML IV SCH (11:58)
[2018-05-23] MEDS ORDERED: LASIX IVP ONE (12:30)
[2018-05-23] MEDS: OXYBUTYNIN CHLORIDE ER PO SCH (20:22)
[2018-05-24] MEDS: PROVENTIL NEB TX 0.083% 2.5MG/ 3ML NEB SCH ×4 (00:02→17:08)
[2018-05-24 04:55] LABS: BASOPHILS % (AUTO) 0.6 % (0.2-1.0); EOSINOPHILS # (AUTO) 0.3 x10^3/uL (0.0-0.2); EOSINOPHILS % (AUTO) 4.2 % (0.9-2.9); HEMATOCRIT 30.9 % (36.0-47.0); HEMOGLOBIN 10.2 g/dL (12.0-16.0); LYMPHOCYTES # (AUTO) 1.8 X10^3/uL (1.3-2.9); LYMPHOCYTES % (AUTO) 26.6 % (21.0-51.0); MEAN CORPUSCULAR HEMOGLOBIN 27.5 pg (27.0-34.0); MEAN CORPUSCULAR VOLUME 83.4 fL (80.0-100.0); MEAN PLATELET VOLUME 8.9 fL (7.4-11.0); MONOCYTES # (AUTO) 0.6 x10^3/uL (0.3-0.8); MONOCYTES % (AUTO) 8.3 % (0.0-13.0); NEUTROPHILS # (AUTO) 4.1 x10^3/uL (2.2-4.8); NEUTROPHILS % (AUTO) 60.3 % (42.0-75.0); PLATELET COUNT 215 X10^3/uL (150.0-450.0); RED BLOOD COUNT 3.71 X10^6/uL (3.5-5.4); RED CELL DISTRIBUTION WIDTH 19.1 % (11.6-16.5); WHITE BLOOD COUNT 6.8 X10^3/uL (3.6-10.0)
[2018-05-24 05:09] LABS: ALANINE AMINOTRANSFERASE 25 Units/L (12-78); ALBUMIN 4.6 g/dL (3.4-5.0); ALKALINE PHOSPHATASE 60 Units/L (46-116); ASPARTATE AMINO TRANSFERASE 37 Units/L (15-37); BLOOD UREA NITROGEN 14 mg/dL (7-18); CALCIUM 10.1 mg/dL (8.5-10.1); CHLORIDE 103 mmol/L (98-107); CREATININE 1.22 mg/dL (0.55-1.02); SODIUM 137 mmol/L (136-145); TOTAL PROTEIN 8.2 g/dL (6.4-8.2); eGFR NON BLACK RACES 46 (>60)
--- NOTE | 2018-05-24 07:05 | RAD ---
Examination: AP chest History: COPD Comparison 05/22/2018 Findings: Stable upper normal heart size as before. Diffuse interstitial prominence in the lungs consistent with mild chronic peribronchial thickening. No acute consolidation, pneumothorax or pleural fluid. Left subclavian catheter extends to the SVC. Fractured proximal right humerus again noted. Impression: Continued cardiac prominence with probably chronic interstitial thickening. No focal atelectasis or pneumonia identified. Reported By:
[2018-05-24] MEDS: ZESTRIL TAB 5 MG PO SCH (09:15)
[2018-05-24] MEDS: NYSTATIN CREAM TOP SCH ×2 (09:15→20:39)
[2018-05-24] MEDS: MIRALAX POWDER (1 DOSE 17 G) PO SCH (09:15)
[2018-05-24] MEDS: PEPCID 20 MG IV PREMIX* 20 MG/50 ML BAG IV SCH ×2 (09:15→20:38)
[2018-05-24] MEDS: TOPROL XL PO SCH (09:15)
[2018-05-24] MEDS: BACTRIM DS TAB PO SCH ×2 (09:15→20:39)
[2018-05-24] MEDS: LEXAPRO PO SCH (09:15)
[2018-05-24] MEDS: COLACE CAP 100 MG PO SCH ×2 (09:15→20:39)
[2018-05-24] MEDS: PROTONIX INJ 40 MG VIAL IVP SCH ×2 (09:15→20:38)
[2018-05-24] MEDS: SYNTHROID 50 mcg TAB PO SCH (09:15)
[2018-05-24] MEDS: ALBUMIN HUMAN 25%- 100 ML 100 ML IV SCH (09:15)
[2018-05-24] MEDS: DIFLUCAN 200 MG IV PREMIX* 200 MG/100 ML BAG IV SCH (09:30)
[2018-05-24] MEDS ORDERED: LEXAPRO ONE (09:30)
[2018-05-24] MEDS: LEVSIN/MAALOX/LIDOC VISC PO SCH ×4 (10:41→20:37)
[2018-05-24] MEDS: ROCEPHIN VIAL 1 GRAM IVP SCH (10:44)
[2018-05-24] MEDS: KLONOPIN TAB 1 MG PO SCH (10:44)
[2018-05-24] MEDS: PROCALAMINE 3 % 1,000 ML IV SCH (10:45)
[2018-05-24] MEDS: LOVENOX INJ 30 MG SYR SC SCH (10:46)
[2018-05-24] MEDS: MEGACE PO SCH ×2 (10:47→20:39)
[2018-05-24] MEDS: MILK OF MAGNESIA PO SCH ×2 (10:47→20:39)
[2018-05-24] MEDS ORDERED: KLONOPIN TAB 1 MG PO PRN (13:31)
--- NOTE | 2018-05-24 14:18 | CT ---
HISTORY: Altered mental status Study: CT brain without contrast Comparison: 05/22/2018 Technique: Multiple axial images of the brain were obtained from the skull base to the vertex without administration of IV contrast. Findings: No acute intraparenchymal hemorrhage or mass can be identified. Small minus cisterna is again noted. No extra-axial fluid collections are seen. No alteration in the attenuation of the brain parenchyma can be identified to suggest acute or subacute ischemic change. The ventricular system is symmetric and nondilated. There is chronic periventricular white matter disease observed and age-appropriate generalized atrophy. IMPRESSION: 1. No acute intracranial process can be identified. 2. Chronic periventricular white matter disease likely on the basis of small vessel ischemic change. 3. Age-appropriate atrophic changes are seen. Reported By:
[2018-05-24] MEDS: PERCOCET TAB 5/325 MG PO PRN (20:55)
[2018-05-25] MEDS: PROVENTIL NEB TX 0.083% 2.5MG/ 3ML NEB SCH ×5 (00:35→17:10)
[2018-05-25 05:05] LABS: BASOPHILS # (AUTO) 0.1 X10^3/uL (0.0-0.1); BASOPHILS % (AUTO) 0.8 % (0.2-1.0); EOSINOPHILS # (AUTO) 0.2 x10^3/uL (0.0-0.2); EOSINOPHILS % (AUTO) 2.6 % (0.9-2.9); HEMATOCRIT 30.2 % (36.0-47.0); HEMOGLOBIN 10.1 g/dL (12.0-16.0); LYMPHOCYTES % (AUTO) 30.5 % (21.0-51.0); MEAN CORPUSCULAR HEMOGLOBIN 28.1 pg (27.0-34.0); MEAN CORPUSCULAR HGB CONC 33.6 g/dL (33.0-35.0); MEAN CORPUSCULAR VOLUME 83.6 fL (80.0-100.0); MEAN PLATELET VOLUME 8.8 fL (7.4-11.0); MONOCYTES # (AUTO) 0.6 x10^3/uL (0.3-0.8); MONOCYTES % (AUTO) 9.8 % (0.0-13.0); NEUTROPHILS # (AUTO) 3.7 x10^3/uL (2.2-4.8); NEUTROPHILS % (AUTO) 56.3 % (42.0-75.0); PLATELET COUNT 237 X10^3/uL (150.0-450.0); RED BLOOD COUNT 3.61 X10^6/uL (3.5-5.4); WHITE BLOOD COUNT 6.6 X10^3/uL (3.6-10.0)
[2018-05-25 05:16] LABS: ALANINE AMINOTRANSFERASE 15 Units/L (12-78); ALBUMIN 4.6 g/dL (3.4-5.0); ALKALINE PHOSPHATASE 57 Units/L (46-116); ASPARTATE AMINO TRANSFERASE 27 Units/L (15-37); BLOOD UREA NITROGEN 25 mg/dL (7-18); CALCIUM 10.2 mg/dL (8.5-10.1); CARBON DIOXIDE 21.3 mmol/L (21-32); CREATININE 1.53 mg/dL (0.55-1.02); SODIUM 136 mmol/L (136-145); TOTAL PROTEIN 8.1 g/dL (6.4-8.2); eGFR NON BLACK RACES 35 (>60)
[2018-05-25 06:36] LABS: CHLORIDE 100 mmol/L (98-107)
--- NOTE | 2018-05-25 06:56 | RAD ---
History: COPD and shortness of breath Study: AP chest Comparison: Yesterday Findings: The lungs are clear of active disease in the heart size is normal. There is a left subclavian line in place with the tip in the upper SVC. There is an old appearing proximal right humeral fracture as before. Impression: No acute disease demonstrated Reported By:
[2018-05-25] MEDS ORDERED: LEXAPRO ONE (08:39)
[2018-05-25] MEDS: LOVENOX INJ 30 MG SYR SC SCH (09:17)
[2018-05-25] MEDS: LEVSIN/MAALOX/LIDOC VISC PO SCH ×4 (09:18→20:29)
[2018-05-25] MEDS: BACTRIM DS TAB PO SCH ×2 (09:19→20:30)
[2018-05-25] MEDS: LEXAPRO PO SCH (09:19)
[2018-05-25] MEDS: MEGACE PO SCH ×2 (09:19→20:30)
[2018-05-25] MEDS: TOPROL XL PO SCH (09:19)
[2018-05-25] MEDS: COLACE CAP 100 MG PO SCH ×2 (09:19→20:30)
[2018-05-25] MEDS: ZESTRIL TAB 5 MG PO SCH (09:19)
[2018-05-25] MEDS: ROCEPHIN VIAL 1 GRAM IVP SCH (09:19)
[2018-05-25] MEDS: SYNTHROID 50 mcg TAB PO SCH (09:19)
[2018-05-25] MEDS: DIFLUCAN 200 MG IV PREMIX* 200 MG/100 ML BAG IV SCH (09:20)
[2018-05-25] MEDS: ALBUMIN HUMAN 25%- 100 ML 100 ML IV SCH (09:20)
[2018-05-25] MEDS: PEPCID 20 MG IV PREMIX* 20 MG/50 ML BAG IV SCH ×2 (09:20→20:29)
[2018-05-25] MEDS: MILK OF MAGNESIA PO SCH ×2 (09:21→20:42)
[2018-05-25] MEDS: PROCALAMINE 3 % 1,000 ML IV SCH (09:22)
[2018-05-25] MEDS: MIRALAX POWDER (1 DOSE 17 G) PO SCH (09:22)
[2018-05-25] MEDS: PROTONIX INJ 40 MG VIAL IVP SCH ×2 (09:23→20:30)
[2018-05-25] MEDS: NYSTATIN CREAM TOP SCH ×2 (09:23→20:47)
[2018-05-25] MEDS: PERCOCET TAB 5/325 MG PO PRN ×2 (11:55→20:30)
[2018-05-26] MEDS: PROVENTIL NEB TX 0.083% 2.5MG/ 3ML NEB SCH ×3 (00:50→12:04)
[2018-05-26 05:19] LABS: BASOPHILS # (AUTO) 0.1 X10^3/uL (0.0-0.1); BASOPHILS % (AUTO) 0.7 % (0.2-1.0); EOSINOPHILS # (AUTO) 0.2 x10^3/uL (0.0-0.2); EOSINOPHILS % (AUTO) 3.2 % (0.9-2.9); HEMATOCRIT 29.5 % (36.0-47.0); HEMOGLOBIN 9.8 g/dL (12.0-16.0); LYMPHOCYTES # (AUTO) 2.5 X10^3/uL (1.3-2.9); LYMPHOCYTES % (AUTO) 32.2 % (21.0-51.0); MEAN CORPUSCULAR HEMOGLOBIN 27.9 pg (27.0-34.0); MEAN CORPUSCULAR HGB CONC 33.3 g/dL (33.0-35.0); MEAN CORPUSCULAR VOLUME 83.7 fL (80.0-100.0); MONOCYTES # (AUTO) 0.6 x10^3/uL (0.3-0.8); MONOCYTES % (AUTO) 7.6 % (0.0-13.0); NEUTROPHILS # (AUTO) 4.3 x10^3/uL (2.2-4.8); NEUTROPHILS % (AUTO) 56.3 % (42.0-75.0); PLATELET COUNT 235 X10^3/uL (150.0-450.0); RED BLOOD COUNT 3.52 X10^6/uL (3.5-5.4); RED CELL DISTRIBUTION WIDTH 19.1 % (11.6-16.5); WHITE BLOOD COUNT 7.7 X10^3/uL (3.6-10.0)
[2018-05-26 07:52] LABS: ALANINE AMINOTRANSFERASE 11 Units/L (12-78); ALBUMIN 4.6 g/dL (3.4-5.0); ALKALINE PHOSPHATASE 53 Units/L (46-116); ASPARTATE AMINO TRANSFERASE 27 Units/L (15-37); BLOOD UREA NITROGEN 31 mg/dL (7-18); CALCIUM 9.9 mg/dL (8.5-10.1); CHLORIDE 100 mmol/L (98-107); CREATININE 1.58 mg/dL (0.55-1.02); SODIUM 131 mmol/L (136-145); eGFR NON BLACK RACES 34 (>60)
--- NOTE | 2018-05-26 08:49 | PCM.PROG ---
Progress Note - Progress Note for Day of Date of Exam: 05/25/18 - Subjective Subjective: IS A 73 YEAR OLD PATIENT OF OURS WHO WAS ADMITTED ON 05/16/18. SHE IS BEING TREATED FOR FAILURE TO THRIVE, ELECTROLYTE IMBALANCE, AND MULTIPLE FRACTURES. TODAY, SHE IS ALERT AND ORIENTED, LYING IN BED ON MORNING ROUNDS. SHE CONTINUES WITH COMPLAINTS OF WEAKNESS, BUT REPORTS FEELING BETTER THAN SHE HAS IN THE PAST SEVERAL DAYS. SHE RECENTLY OBTAINED A RIGHT SHOULDER, RIGHT HIP, AND PELVIS FRACTURES FOLLOWING A FALL AT HOME. SHE IS RECEIVING PHYSICAL THERAPY HERE. ON EXAMINATION, HEART IS REGULAR IN RATE AND RHYTHM. BILATERAL LUNGS ARE NOTED WITH DIMINISHED LUNG SOUNDS THROUGHOUT. ABDOMEN IS TOUND, SOFT, AND NON-TENDER WITH NORMAL BOWEL SOUNDS NOTED IN ALL QUADRANTS. SHE IS WEARING A SLING TO THE RIGHT SHOULDER. HER VITALS THIS MORNING ARE 98.4-61-18-96%-112/60. LABS WERE OBTAINED. ABNORMAL LAB VALUES INCLUDE THE FOLLOWING: HGB 10.1, HCT 30.2, BUN 25, CREATININE 1.53, CALCIUM 10.2. A CHEST XRAY WAS OBTAINED TODAY AND REVEALED: No acute disease demonstrated. PHYSICAL THERAPY CONTINUES WORKING WITH PATIENT. WE WILL CONTINUE WITH CURRENT PLAN OF CARE TODAY. SHE WILL BE MOVED TO [facility] FOR PHYSICAL THERAPY WHEN A BED IS AVAILABLE. OTHERWISE, WE PLAN TO FOLLOW UP WITH AM LABS AND CONTINUE TO MONITOR. - Past Medical Family Social History Past Med/Fam/Surg Hx: No changes since H&P Allergies: Allergies Fish Containing Products Allergy (Verified 05/19/18 12:23) iodine Allergy (Verified 05/16/18 00:29) levofloxacin Allergy (Verified 05/15/18 22:49) Penicillins Allergy (Verified 05/15/18 22:49) - Review of Systems ROS: No change since H&P - Vital Signs and I&O's Vital Signs: Temperature 97.6 F Pulse Rate [Left Brachial] 64 Pulse Rate [Brachial] 87 Pulse Rate 78 Respiratory Rate 22 Blood Pressure [Left Arm] 100/54 Blood Pressure [Left Calf] 114/59 Blood Pressure 120/69 O2 Sat by Pulse Oximetry 96 Intake and Output: Intake & Output 05/23/18 05/24/18 05/25/18 05/26/18 11:59 11:59 11:59 11:59 Intake Total 1959 / 1959 1045 / 1045 895 / 895 1340 / 1340 Output Total 700 / 700 1400 / 1400 900 / 900 Balance 1959 / 1959 345 / 345 -505 / -505 440 / 440 - Physical Exam Oriented: Normal Eyes: Normal Ear: Normal Nose: Normal Throat: Normal Respiratory: Generalized, Diminished, Rhonchi Cardiovascular: Normal. negative: Murmur : Normal Auscultation: Bowel Sounds: Increased Palpation: Normal Tenderness: Diffuse, Mild Skin: Decreased Turgur Musculoskeletal: Right, Shoulder, Hip, Back:Lumbar, Swelling, Tender, Sensory Deficit, Instability Mood Description: Flat Affect: Depressed Speech Pattern: Clear, Appropriate - Laboratory and Diagnostics Result Diagrams: 05/26/18 04:05 05/26/18 04:05 Labs: 05/16/18 19:01 Stool Stool Culture - Final 05/16/18 19:01 Stool - Final 05/15/18 23:48 Urine,Clean Catch Urine Culture - Final Laboratory WBC 7.7 X10^3/uL (3.6-10.0) 05/26/18 04:05 RBC 3.52 X10^6/uL (3.5-5.4) 05/26/18 04:05 Hgb 9.8 g/dL (12.0-16.0) L 05/26/18 04:05 Hct 29.5 % (36.0-47.0) L 05/26/18 04:05 MCV 83.7 fL (80.0-100.0) 05/26/18 04:05 MCH 27.9 pg (27.0-34.0) 05/26/18 04:05 MCHC 33.3 g/dL (33.0-35.0) 05/26/18 04:05 RDW 19.1 % (11.6-16.5) H 05/26/18 04:05 Plt Count 235 X10^3/uL (150.0-450.0) 05/26/18 04:05 Plt Count Comment Adequate (ADEQUATE) 05/19/18 05:25 MPV 9.0 fL (7.4-11.0) 05/26/18 04:05 Neut % (Auto) 56.3 % (42.0-75.0) 05/26/18 04:05 Lymph % (Auto) 32.2 % (21.0-51.0) 05/26/18 04:05 [place] % (Auto) 7.6 % (0.0-13.0) 05/26/18 04:05 Eos % (Auto) 3.2 % (0.9-2.9) H 05/26/18 04:05 Baso % (Auto) 0.7 % (0.2-1.0) 05/26/18 04:05 Neut # (Auto) 4.3 x10^3/uL (2.2-4.8) 05/26/18 04:05 Lymph # (Auto) 2.5 X10^3/uL (1.3-2.9) 05/26/18 04:05 [place] # (Auto) 0.6 x10^3/uL (0.3-0.8) 05/26/18 04:05 Eos # (Auto) 0.2 x10^3/uL (0.0-0.2) 05/26/18 04:05 Baso # (Auto) 0.1 X10^3/uL (0.0-0.1) 05/26/18 04:05 Absolute Nucleated RBC 0.0 /100WBC 05/26/18 04:05 Total Counted 100 05/19/18 05:25 Neutrophils % (Manual) 71 % (39-76) 05/19/18 05:25 Lymphocytes % (Manual) 22 % (13-43) 05/19/18 05:25 Monocytes % (Manual) 5 % (4-9) 05/19/18 05:25 Eosinophils % (Manual) 2 % (0-6) 05/19/18 05:25 Plt Morphology Comment Normal (NORMAL) 05/19/18 05:25 RBC Morphology Normal (NORMAL) 05/19/18 05:25 Sodium 131 mmol/L (136-145) L 05/26/18 04:05 Corrected Sodium TNP 05/26/18 04:05 Potassium 5.2 mmol/L (3.5-5.1) H 05/26/18 04:05 Chloride 100 mmol/L (98-107) 05/26/18 04:05 Carbon Dioxide 17.0 mmol/L (21-32) L 05/26/18 04:05 BUN 31 mg/dL (7-18) H 05/26/18 04:05 Creatinine 1.58 mg/dL (0.55-1.02) H 05/26/18 04:05 Est GFR (MDRD) Af Amer 41 (>60) L 05/26/18 04:05 Est GFR (MDRD) Non-Af 34 (>60) L 05/26/18 04:05 Glucose 86 mg/dL (65-99) 05/26/18 04:05 Hemoglobin A1c 5.6 % 05/16/18 05:35 Calcium 9.9 mg/dL (8.5-10.1) 05/26/18 04:05 Corrected Calcium TNP 05/26/18 04:05 Magnesium 2.2 mg/dL (1.7-2.9) 05/21/18 04:17 Total Bilirubin 0.40 mg/dL (0.2-1.0) 05/26/18 04:05 AST 27 Units/L (15-37) 05/26/18 04:05 ALT 11 Units/L (12-78) L 05/26/18 04:05 Alkaline Phosphatase 53 Units/L (46-116) 05/26/18 04:05 C-Reactive Protein 45.00 mg/L (0-3.0) H 05/18/18 04:47 Total Protein 8.0 g/dL (6.4-8.2) 05/26/18 04:05 Albumin 4.6 g/dL (3.4-5.0) 05/26/18 04:05 Globulin 3.4 g/dL (2.5-4.5) 05/26/18 04:05 Albumin/Globulin Ratio 1.4 Ratio (1.1-2.1) 05/26/18 04:05 Prealbumin 16.0 mg/dL (18-35.7) L 05/18/18 04:47 Specimen Type Clean catch urine 05/15/18 23:48 Urine Color Dark yellow (YELLOW) 05/15/18 23:48 Urine Appearance Clear (CLEAR) 05/15/18 23:48 Urine pH 5.0 (5.0 - 8.0) 05/15/18 23:48 Ur Specific [place] 1.020 (1.000-1.030) 05/15/18 23:48 Urine Protein 1+ (NEGATIVE) 05/15/18 23:48 Urine Glucose (UA) Negative (NEGATIVE) 05/15/18 23:48 Urine Ketones Negative (NEGATIVE) 05/15/18 23:48 Urine Occult Blood 4+ (NEGATIVE) 05/15/18 23:48 Urine Nitrite Negative (NEGATIVE) 05/15/18 23:48 Urine Bilirubin Negative (NEGATIVE) 05/15/18 23:48 Urine Urobilinogen Normal (NORMAL) 05/15/18 23:48 Ur Leukocyte Esterase 1+ (NEGATIVE) 05/15/18 23:48 Urine RBC 3-5 /HPF (NONE SEEN) 05/15/18 23:48 Urine WBC 5-10 /HPF (NONE SEEN) 05/15/18 23:48 Ur Squamous Epith Cells Moderate /HPF (NEGATIVE) 05/15/18 23:48 Amorphous Sediment Trace /HPF (NEGATIVE) 05/15/18 23:48 Urine Bacteria Trace /HPF (NEGATIVE) 05/15/18 23:48 Urine Mucus Moderate /HPF (NEGATIVE) 05/15/18 23:48 Ur Culture Indicated? Yes/culture set up 05/15/18 23:48 Stool Description 50g,brown,semi-solid 05/16/18 19:01 Stl Occult Blood (IFOB) Positive (NEGATIVE) A 05/16/18 19:01 Stool for White Cells Positive (NEGATIVE) A 05/16/18 19:01 Stl C. diff Tox B Gene Negative (NEGATIVE) 05/16/18 19:01 Stl C. diff [id number] Negative (NEGATIVE) 05/16/18 19:01 Stool H. pylori Ag Negative (NEGATIVE) 05/16/18 19:01 - Plan (1) Near syncope Status: Acute Plan: BP CONTROL, SUPPLEMENTAL O2 PRN. GENTLE IV HYDRATION WITH ELECTROLYTE REPLACEMENT. PAIN AND NAUSEA CONTROL, STOOL STUDIES. IV ROCEPHIN FOR UTI, CULTURE COLLECTED (2) Dehydration Status: Acute Plan: GENTLE IV HYDRATION, CONTINUE TO MONITOR (3) Hypertension Status: Acute Qualifiers: Hypertension type: essential hypertension Qualified Code(s): I10 - Essential (primary) hypertension (4) Hypokalemia Status: Acute (5) Hyponatremia Status: Acute (6) Nausea, vomiting and diarrhea Status: Acute (7) Right femoral fracture Status: Acute Qualifiers: Encounter type: subsequent encounter Femur location: unspecified portion of femur Fracture type: closed Fracture morphology: unspecified fracture morphology Fracture healing: with routine healing Qualified Code(s): S72.91XD - Unspecified fracture of right femur, subsequent encounter for closed fracture with routine healing (8) Right humeral fracture Status: Acute Qualifiers: Encounter type: subsequent encounter Fracture type: closed Fracture morphology: comminuted Fracture alignment: displaced Fracture healing: with routine healing (9) Generalized weakness Status: Acute Plan: TPN, ALBUMIN, PT, CONTINUE TO MONITOR (10) Yeast in stool Status: Acute Plan: DIFLUCAN 200MG IV DAILY, NYSTATIN CREAM BID
[2018-05-26] MEDS ORDERED: LEXAPRO ONE (09:59)
[2018-05-26] MEDS: DIFLUCAN 200 MG IV PREMIX* 200 MG/100 ML BAG IV SCH (10:12)
[2018-05-26] MEDS: ALBUMIN HUMAN 25%- 100 ML 100 ML IV SCH (10:13)
[2018-05-26] MEDS: PEPCID 20 MG IV PREMIX* 20 MG/50 ML BAG IV SCH (10:14)
[2018-05-26] MEDS: LEVSIN/MAALOX/LIDOC VISC PO SCH ×2 (10:14→13:49)
[2018-05-26] MEDS: MEGACE PO SCH (10:16)
[2018-05-26] MEDS: COLACE CAP 100 MG PO SCH (10:16)
[2018-05-26] MEDS: BACTRIM DS TAB PO SCH (10:16)
[2018-05-26] MEDS: SYNTHROID 50 mcg TAB PO SCH (10:17)
[2018-05-26] MEDS: ZESTRIL TAB 5 MG PO SCH (10:17)
[2018-05-26] MEDS: LOVENOX INJ 30 MG SYR SC SCH (10:18)
[2018-05-26] MEDS: LEXAPRO PO SCH (10:18)
[2018-05-26] MEDS: TOPROL XL PO SCH (10:18)
[2018-05-26] MEDS: ROCEPHIN VIAL 1 GRAM IVP SCH (10:20)
[2018-05-26] MEDS: PROTONIX INJ 40 MG VIAL IVP SCH (10:20)
[2018-05-26] MEDS: MIRALAX POWDER (1 DOSE 17 G) PO SCH (10:21)
[2018-05-26] MEDS: NYSTATIN CREAM TOP SCH (10:21)
[2018-05-26] MEDS: MILK OF MAGNESIA PO SCH (10:21)
[2018-05-26] MEDS ORDERED: HEMOCYTE-PLUS PO SCH (11:00)
[2018-05-26] MEDS ORDERED: PROVENTIL NEB TX 0.083% 2.5MG/ 3ML NEB PRN (12:20)
--- NOTE | 2018-05-26 16:40 | MRI ---
MRI BRAIN WITHOUT CONTRAST CLINICAL HISTORY: 73-year-old female with altered mental status and weakness. COMPARISON: CT head 05/24/2018. TECHNIQUE: Multiplanar, multisequence MR images of the brain were obtained without contrast. FINDINGS: Study is limited secondary to patient motion. There is no evidence of diffusion restriction. The craniocervical junction is normal. Pituitary and optic nerve complex are normal. Multifocal confluent punctate T2 FLAIR signal hyperintensities are present within the subcortical, juxtacortical, periventricular and supraventricular white matter that are nonspecific in appearance but most likely to represent microvascular white matter ischemic changes. Normal signal characteristics and morphology are demonstrated within the cerebral cortex, corpus callosum, deep michel nuclei, brainstem and cerebellum. The major vascular flow voids, to include the dural venous sinuses, are intact. No abnormal susceptibility on gradient imaging. Age advanced cortical volume loss is present, with commensurate sulcal and ventricular prominence. The basilar cisterns are normal. The orbits and globes are within normal limits. Polypoid mucosal thickening of the left maxillary sinus with the remaining imaged paranasal sinuses and left mastoids clear. Trace fluid right mastoids. Tympanic cavities clear. IMPRESSION: 1. No acute ischemic or hemorrhagic insult. 2. Moderate, chronic microvascular white matter ischemic disease with associated volume loss. 3. Mucosal thickening left maxillary sinus with trace fluid right mastoid air cells, nonspecific, correlate clinically. Reported By:
[2018-05-26] MEDS: PERCOCET TAB 5/325 MG PO PRN (20:20)
[2018-05-26 20:22] VITALS: BP 137/61
--- NOTE | 2018-05-26 20:57 | PCM.PROG ---
Progress Note - Progress Note for Day of Date of Exam: 05/26/18 - Subjective Subjective: IS A 73 YEAR OLD PATIENT OF OURS WHO WAS ADMITTED ON 05/16/18. SHE IS BEING TREATED FOR FAILURE TO THRIVE, ELECTROLYTE IMBALANCE, AND MULTIPLE FRACTURES. TODAY, SHE IS ALERT AND ORIENTED, LYING IN BED ON MORNING ROUNDS. SHE CONTINUES WITH COMPLAINTS OF WEAKNESS TODAY. FAMILY REPORTS INTERMITTENT CONFUSION. SHE RECENTLY OBTAINED A RIGHT SHOULDER, RIGHT HIP, AND PELVIS FRACTURES FOLLOWING A FALL AT HOME. SHE IS RECEIVING PHYSICAL THERAPY HERE. ON EXAMINATION, HEART IS REGULAR IN RATE AND RHYTHM. BILATERAL LUNGS ARE NOTED WITH DIMINISHED LUNG SOUNDS THROUGHOUT. ABDOMEN IS ROUND, SOFT, AND NON- TENDER WITH NORMAL BOWEL SOUNDS NOTED IN ALL QUADRANTS. SHE IS WEARING A SLING TO THE RIGHT SHOULDER. HER VITALS THIS MORNING ARE 97.6-64-22-96%-100/54. LABS WERE OBTAINED. ABNORMAL LAB VALUES INCLUDE THE FOLLOWIN.8, HCT 29.5, SODIUM 131, POTASSIUM 5.2, CARBON DIOXIDE 17.0, BUN 31, CREATININE 1.58, ALT 11. PHYSICAL THERAPY CONTINUES WORKING WITH PATIENT. SHE IS COOPERATIVE AND MAKING PROGRESS. WE WILL CONTINUE WITH CURRENT PLAN OF CARE TODAY AND ALSO OBTAIN A BRAIN MRI. SHE WILL BE MOVED TO [facility] FOR [facility]ICAL THERAPY WHEN A BED IS AVAILABLE. OTHERWISE, WE PLAN TO FOLLOW UP WITH AM LABS AND CONTINUE TO MONITOR. - Past Medical Family Social History Past Med/Fam/Surg Hx: No changes since H&P Allergies: Allergies Fish Containing Products Allergy (Verified 05/19/18 12:23) iodine Allergy (Verified 05/16/18 00:29) levofloxacin Allergy (Verified 05/15/18 22:49) Penicillins Allergy (Verified 05/15/18 22:49) - Review of Systems ROS: No change since H&P - Vital Signs and I&O's Vital Signs: Temperature 97.8 F Pulse Rate [Left Brachial] 68 Pulse Rate [Brachial] 87 Pulse Rate 71 Respiratory Rate 20 Blood Pressure [Left Arm] 137/61 Blood Pressure [Left Calf] 114/59 Blood Pressure 120/69 O2 Sat by Pulse Oximetry 96 Intake and Output: Intake & Output 05/24/18 05/25/18 05/26/18 05/27/18 11:59 11:59 11:59 11:59 Intake Total 1045 / 1045 895 / 895 1340 / 1340 800 / 800 Output Total 700 / 700 1400 / 1400 900 / 900 Balance 345 / 345 -505 / -505 440 / 440 800 / 800 - Physical Exam Oriented: Normal Eyes: Normal Ear: Normal Nose: Normal Throat: Normal Respiratory: Generalized, Diminished, Rhonchi Cardiovascular: Normal. negative: Murmur : Normal Auscultation: Bowel Sounds: Increased Palpation: Normal Tenderness: Diffuse, Mild Skin: Decreased Turgur Musculoskeletal: Right, Shoulder, Hip, Back:Lumbar, Swelling, Tender, Sensory De ficit, Instability Mood Description: Flat Affect: Depressed Speech Pattern: Clear, Appropriate - Laboratory and Diagnostics Result Diagrams: 05/26/18 04:05 05/26/18 04:05 Labs: 05/16/18 19:01 Stool Stool Culture - Final 05/16/18 19:01 Stool - Final 05/15/18 23:48 Urine,Clean Catch Urine Culture - Final Laboratory WBC 7.7 X10^3/uL (3.6-10.0) 05/26/18 04:05 RBC 3.52 X10^6/uL (3.5-5.4) 05/26/18 04:05 Hgb 9.8 g/dL (12.0-16.0) L 05/26/18 04:05 Hct 29.5 % (36.0-47.0) L 05/26/18 04:05 MCV 83.7 fL (80.0-100.0) 05/26/18 04:05 MCH 27.9 pg (27.0-34.0) 05/26/18 04:05 MCHC 33.3 g/dL (33.0-35.0) 05/26/18 04:05 RDW 19.1 % (11.6-16.5) H 05/26/18 04:05 Plt Count 235 X10^3/uL (150.0-450.0) 05/26/18 04:05 Plt Count Comment Adequate (ADEQUATE) 05/19/18 05:25 MPV 9.0 fL (7.4-11.0) 05/26/18 04:05 Neut % (Auto) 56.3 % (42.0-75.0) 05/26/18 04:05 Lymph % (Auto) 32.2 % (21.0-51.0) 05/26/18 04:05 [place] % (Auto) 7.6 % (0.0-13.0) 05/26/18 04:05 Eos % (Auto) 3.2 % (0.9-2.9) H 05/26/18 04:05 Baso % (Auto) 0.7 % (0.2-1.0) 05/26/18 04:05 Neut # (Auto) 4.3 x10^3/uL (2.2-4.8) 05/26/18 04:05 Lymph # (Auto) 2.5 X10^3/uL (1.3-2.9) 05/26/18 04:05 [place] # (Auto) 0.6 x10^3/uL (0.3-0.8) 05/26/18 04:05 Eos # (Auto) 0.2 x10^3/uL (0.0-0.2) 05/26/18 04:05 Baso # (Auto) 0.1 X10^3/uL (0.0-0.1) 05/26/18 04:05 Absolute Nucleated RBC 0.0 /100WBC 05/26/18 04:05 Total Counted 100 05/19/18 05:25 Neutrophils % (Manual) 71 % (39-76) 05/19/18 05:25 Lymphocytes % (Manual) 22 % (13-43) 05/19/18 05:25 Monocytes % (Manual) 5 % (4-9) 05/19/18 05:25 Eosinophils % (Manual) 2 % (0-6) 05/19/18 05:25 Plt Morphology Comment Normal (NORMAL) 05/19/18 05:25 RBC Morphology Normal (NORMAL) 05/19/18 05:25 Sodium 131 mmol/L (136-145) L 05/26/18 04:05 Corrected Sodium TNP 05/26/18 04:05 Potassium 5.2 mmol/L (3.5-5.1) H 05/26/18 04:05 Chloride 100 mmol/L (98-107) 05/26/18 04:05 Carbon Dioxide 17.0 mmol/L (21-32) L 05/26/18 04:05 BUN 31 mg/dL (7-18) H 05/26/18 04:05 Creatinine 1.58 mg/dL (0.55-1.02) H 05/26/18 04:05 Est GFR (MDRD) Af Amer 41 (>60) L 05/26/18 04:05 Est GFR (MDRD) Non-Af 34 (>60) L 05/26/18 04:05 Glucose 86 mg/dL (65-99) 05/26/18 04:05 Hemoglobin A1c 5.6 % 05/16/18 05:35 Calcium 9.9 mg/dL (8.5-10.1) 05/26/18 04:05 Corrected Calcium TNP 05/26/18 04:05 Magnesium 2.2 mg/dL (1.7-2.9) 05/21/18 04:17 Total Bilirubin 0.40 mg/dL (0.2-1.0) 05/26/18 04:05 AST 27 Units/L (15-37) 05/26/18 04:05 ALT 11 Units/L (12-78) L 05/26/18 04:05 Alkaline Phosphatase 53 Units/L (46-116) 05/26/18 04:05 C-Reactive Protein 45.00 mg/L (0-3.0) H 05/18/18 04:47 Total Protein 8.0 g/dL (6.4-8.2) 05/26/18 04:05 Albumin 4.6 g/dL (3.4-5.0) 05/26/18 04:05 Globulin 3.4 g/dL (2.5-4.5) 05/26/18 04:05 Albumin/Globulin Ratio 1.4 Ratio (1.1-2.1) 05/26/18 04:05 Prealbumin 16.0 mg/dL (18-35.7) L 05/18/18 04:47 Specimen Type Clean catch urine 05/15/18 23:48 Urine Color Dark yellow (YELLOW) 05/15/18 23:48 Urine Appearance Clear (CLEAR) 05/15/18 23:48 Urine pH 5.0 (5.0 - 8.0) 05/15/18 23:48 Ur Specific [place] 1.020 (1.000-1.030) 05/15/18 23:48 Urine Protein 1+ (NEGATIVE) 05/15/18 23:48 Urine Glucose (UA) Negative (NEGATIVE) 05/15/18 23:48 Urine Ketones Negative (NEGATIVE) 05/15/18 23:48 Urine Occult Blood 4+ (NEGATIVE) 05/15/18 23:48 Urine Nitrite Negative (NEGATIVE) 05/15/18 23:48 Urine Bilirubin Negative (NEGATIVE) 05/15/18 23:48 Urine Urobilinogen Normal (NORMAL) 05/15/18 23:48 Ur Leukocyte Esterase 1+ (NEGATIVE) 05/15/18 23:48 Urine RBC 3-5 /HPF (NONE SEEN) 05/15/18 23:48 Urine WBC 5-10 /HPF (NONE SEEN) 05/15/18 23:48 Ur Squamous Epith Cells Moderate /HPF (NEGATIVE) 05/15/18 23:48 Amorphous Sediment Trace /HPF (NEGATIVE) 05/15/18 23:48 Urine Bacteria Trace /HPF (NEGATIVE) 05/15/18 23:48 Urine Mucus Moderate /HPF (NEGATIVE) 05/15/18 23:48 Ur Culture Indicated? Yes/culture set up 05/15/18 23:48 Stool Description 50g,brown,semi-solid 05/16/18 19:01 Stl Occult Blood (IFOB) Positive (NEGATIVE) A 05/16/18 19:01 Stool for White Cells Positive (NEGATIVE) A 05/16/18 19:01 Stl C. diff Tox B Gene Negative (NEGATIVE) 05/16/18 19:01 Stl C. diff [id number] Negative (NEGATIVE) 05/16/18 19:01 Stool H. pylori Ag Negative (NEGATIVE) 05/16/18 19:01 - Plan (1) Dehydration Status: Acute Plan: GENTLE IV HYDRATION, CONTINUE TO MONITOR (2) Near syncope Status: Acute Plan: BP CONTROL, SUPPLEMENTAL O2 PRN. GENTLE IV HYDRATION WITH ELECTROLYTE REPLACEMENT. PAIN AND NAUSEA CONTROL, CONTINUE TO MONITOR (3) Hypertension Status: Acute Qualifiers: Hypertension type: essential hypertension Qualified Code(s): I10 - Essential (primary) hypertension (4) Hyponatremia Status: Acute (5) Nausea, vomiting and diarrhea Status: Acute (6) Right femoral fracture Status: Acute Qualifiers: Encounter type: subsequent encounter Femur location: unspecified portion of femur Fracture type: closed Fracture morphology: unspecified fracture morphology Fracture healing: with routine healing Qualified Code(s): S72.91XD - Unspecified fracture of right femur, subsequent encounter for closed fracture with routine healing (7) Right humeral fracture Status: Acute Qualifiers: Encounter type: subsequent encounter Fracture type: closed Fracture morphology: comminuted Fracture alignment: displaced Fracture healing: with routine healing (8) Generalized weakness Status: Acute Plan: TPN, ALBUMIN, PT, CONTINUE TO MONITOR (9) Yeast in stool Status: Resolved Plan: DIFLUCAN 200MG IV DAILY, NYSTATIN CREAM BID (10) Urinary tract infection Status: Resolved Qualifiers: Urinary tract infection type: acute cystitis Hematuria presence: with hematuria Qualified Code(s): N30.01 - Acute cystitis with hematuria
== END 2018-05-26 20:35 | DRG 312 ==
LOC: ER 21:19 → MED/SURG 21:19
PROVIDERS: ADMIT Obstetrics & Gynecology Obstetrics; ATTEND Internal Medicine
DX: I10 Essential (primary) hypertension; W18.39XD Other fall on same level, subsequent encounter; S72.91XD Unspecified fracture of right femur, subsequent encounter for closed fracture with routine healing; E87.1 Hypo-osmolality and hyponatremia; S42.291D Other displaced fracture of upper end of right humerus, subsequent encounter for fracture with routine healing; N30.01 Acute cystitis with hematuria; E86.0 Dehydration; R11.2 Nausea with vomiting, unspecified; R79.82 Elevated C-reactive protein (CRP); E87.6 Hypokalemia; R53.1 Weakness; R19.5 Other fecal abnormalities; R55 Syncope and collapse; R19.7 Diarrhea, unspecified; R62.7 Adult failure to thrive; I87.2 Venous insufficiency (chronic) (peripheral); R41.82 Altered mental status, unspecified; R26.89 Other abnormalities of gait and mobility; E03.8 Other specified hypothyroidism; Z91.81 History of falling
CPT/HCPCS: 36415; 36556; 70450; 70551; 71010; 71045; 73030; 74022; 80053; 81001; 82270; 83036; 83630; 83735; 84134; 85025; 86140; 87045; 87086; 87338; 87427; 87449; 87493; 87899; 93005; 94640; 96365; 96367; 97110; 97162; 97167; 97530; 97535; 99218; 99231; 99283; 99284; A4216; A4222; B5200; C9113; P9047; S0028; S0179; G0378; J0696; J1450; J1650; J1940; J2405; J3475; J7030; J7613

== ENCOUNTER 2021-08-29 14:56 | Observation (INO) ==
--- NOTE | 2021-08-29 15:48 | DR.DIZZY ---
HPI Time seen Time Seen by Provider: 08/29/21 15:41 PCP Primary Care Physician: LATHA DICKINSON/ OMAIRA HPI Comment HPI Comment: PATIENT IS 76YR OLD FEMALE WITH HISTORY OF HTN IN ER AFTER SHE WAS FOUND ON THE FLOOR. SHE PASSED OUT AND FELL. FAMILY SAID HOW LONG PATIENT WAS ON THE FLOOR IS NOT KNOWN. PATIENT IS HAVING NAUSEA, VOMITING AND DIARRHEA. NO FEVER OR DYSUEIA. HAVING RT SHOULDER AND RIGHT ELBOW PAIN. Complaint Chief Complaint Doctor Comments: PASSED OUT, FELL AND HAVING NAUSEA AND VOMITING AND DIARRHEA. Chief Complaint:: PATIENT HAS BEEN HAVING DECREASED INTAKE AND FALLS. PATIENTS FAMILY STATES SHE PASSED OUT AND WAS FOUND IN THE FLOOR TODAY UNKNOWN OF HOW LONG SHE WAS IN THE FLOOR. PATIENTS FAMILY STATES PATIENT HAS BEEN HAVING N/V/D TODAY. COVID-19 Coronavirus risk:travel/contact w/high risk person: No Has patient experienced Coronavirus symptoms: No Nurses Notes Reviewed Nurses Notes Review: Yes Source History Provided: Patient Mode of Arrival Mode of Arrival: Wheelchair Timing Onset of Chief Complaint: 08/27/21 Came on: Suddenly Duration Duration: Since Onset Duration: Hours Location of Weakness Weakness Location: Generalized Context History of: None Stroke Symptoms: None Severity Severity: Normal activity level Modifying factors Worsens: Other (EXERTION.) Associated signs and symptoms Associated Signs and Symptoms: Faintness, Syncope, Weak, Nausea and Vomiting PMH PMH Past Medical History: Yes Past Medical History: Depression, GERD and Hypertension Past Medical History Comment: DIVERTICULITIS Past Surgical History: Yes Surgical History: Appendectomy, Hysterectomy, Ortho Surgery and Tonsillectomy Past Surgical History Comment: KNEE, SHOULDER, HIP Family History History of Family Medical Conditions: No Social History Does any household member use tobacco: No Alcohol Use: None Do you use any recreational Drugs:: No Lives With: Alone Lives Where: Home Travel Risk Coronavirus risk:travel/contact w/high risk person: No Has patient experienced Coronavirus symptoms: No Infectious screening In the last 2 months have you had wt loss of >10#?: NO Have you had fever, night sweats or hemotysis?: No Have you traveled outside the country in the last 6 months?: No Isolation: Standard ROS Review of Systems Constitutional: See HPI, Weakness and Fatigue; negative Fever Eyes: No Symptoms Reported and See HPI; negative Blurred Vision and Diplopia ENTM: No Symptoms Reported and See HPI; negative Nose Discharge and Nose Congestion Respiratoy: No Symptoms Reported and See HPI; negative Moist Cough, Short of Breath and Wheezing Cardiovascular: No Symptoms Reported and See HPI; negative Chest Pain Gastrointestinal/Abdominal: See HPI, Abdominal Pain, Diarrhea, Nausea and Vomiting; negative Constipation Genitourinary: No Symptoms Reported and See HPI; negative Dysuria and Hematuria Neurological: See HPI and Weakness; negative Dizziness Musculoskeletal: No Symptoms Reported and See HPI; negative Muscle Pain Integumentary: No Symptoms Reported and See HPI; negative Rash and Juandice Hematologic/Lymphatic: No Symptoms Reported and See HPI; negative Easy Bruising Endocrine: No Symptoms Reported and See HPI; negative Increased Thirst and Increased Urine Psychiatric: No Symptoms Reported and See HPI All Other Systems: Reviewed and Negative PE Vital Signs Vitals: Temperature 98.2 F Pulse Rate 90 Respiratory Rate 20 Blood Pressure 148/78 O2 Sat by Pulse Oximetry 95 General Limitations: No Limitations General Appearance: Alert and In No Apparent Distress Head Head Exam: Normal Inspection, Atraumatic and Normocephalic Eyes Eye exam: Normal Appearance and PERRL; negative Scleral Icterus and Conjunctival Injection Pupils: Regular, Round: Bilateral and Reactive: Bilateral Sclera/Conjunctival: Normal Inspection: Bilateral ENT ENT Exam: Normal Exam, Normal Oropharynx, Normal External Ear Exam and TM's Normal Bilaterally Neck Neck Exam: Normal Inspection, Full ROM and Trachea Midline; negative Tenderness Chest Chest Inspection: Normal Inspection and Symmetric Chest Wall Rise; negative Tenderness Respiratory Respiratory Exam: Normal Lung Sounds Bilat; negative Accessory Muscle Use, Chest Wall Tenderness and Respiratory Distress Respiratory Exam: Bilateral: Rhonchi and Lower: Rhonchi Cardiovascular Cardiovascular Exam: Regular Rate, Normal Rhythm and Normal Heart Sounds; negative Systolic Murmur and Diastolic Murmur Abdominal Exam Abdominal Exam: Normal Inspection, Normal Bowel Sounds, Soft and Tenderness Abdominal Tenderness: Diffuse and Mild Rectal Rectal Exam: Deferred Extremeties Extremities Exam: Normal Inspection and Normal Capillary Refill Back Back Exam: Normal Inspection; negative (R) CVA Tenderness, (L) CVA Tenderness and Paraspinal Tenderness Neurologic Neurological Exam: Alert and Oriented X3; negative Motor Sensory Deficit Patient Oriented To: Person, Place and Time Speech: Fluid Speech Cranial Nerve Exam: EOM Function (II, III, IV, ): Normal, Facial Sensation (V ): Normal, Facial Palsy (VII): Normal, Gag reflex (XI): Normal and Tongue Deviation: Normal Motor Strength - LUE: 5/5 Motor Strength - RUE: 5/5 Motor Strength - LLE: 5/5 Motor Strength - RLE: 5/5 Upper Motor Neuron Exam: Babinski Sign: Normal Psychiatric Psychiatric Exam: Normal Affect and Normal Mood Skin Skin Exam: Dry MDM Additional Information Obtained Additional Findings: SEE ORDERS DONE WHILE PATIENT WAS IN ER. Differential Diagnosis Differential Diagnosis: Anemia, CVA, Dehydration, Dysrhythmia, Hypoglycemia, Labyrinthitis, Myasthenia gravis, Myocardial infarction, TIA, Central Vertigo and Other (MASS LESION IN BRAIN, PNEUMONIA, UTI.) COURSE Treatment Treatment: SEE ORDERS DONE WHILE PATIENT WAS IN ER. LABS, XRAYS AND EKG REPORT DISCUSSED. PATIENT WILL BE ADMITTED TO [facility]OSP[facility]. Consultation Consultation Comments: DISCUSSED PATIENT WITH DR. ARMSTRONG. HE WILL ADMIT PATIENT. Education/Counseling Education/Counseling: Patient Educated On: Diagnosis ROR Labs Reviewed Laboratory Results Reviewed?: Yes Result Diagrams: 08/31/21 05:35 08/31/21 05:35 Laboratory: WBC 11.2 X10^3/uL (3.6-10.0) H 08/29/21 16:06 RBC 5.06 X10^6/uL (3.5-5.4) 08/29/21 16:06 Hgb 13.1 g/dL (12.0-16.0) 08/29/21 16:06 Hct 39.2 % (36.0-47.0) 08/29/21 16:06 MCV 77.4 fL (80.0-100.0) L 08/29/21 16:06 MCH 25.9 pg (27.0-34.0) L 08/29/21 16:06 MCHC 33.5 g/dL (33.0-35.0) 08/29/21 16:06 RDW 14.8 % (11.6-16.5) 08/29/21 16:06 Plt Count 289 X10^3/uL (150.0-450.0) 08/29/21 16:06 MPV 8.3 fL (7.4-11.0) 08/29/21 16:06 Neut % (Auto) 84.1 % (42.0-75.0) H 08/29/21 16:06 Lymph % (Auto) 11.0 % (21.0-51.0) L 08/29/21 16:06 [place] % (Auto) 4.4 % (0.0-13.0) 08/29/21 16:06 Eos % (Auto) 0.1 % (0.9-2.9) L 08/29/21 16:06 Baso % (Auto) 0.4 % (0.2-1.0) 08/29/21 16:06 Neut # (Auto) 9.4 x10^3/uL (2.2-4.8) H 08/29/21 16:06 Lymph # (Auto) 1.2 X10^3/uL (1.3-2.9) L 08/29/21 16:06 [place] # (Auto) 0.5 x10^3/uL (0.3-0.8) 08/29/21 16:06 Eos # (Auto) 0.0 x10^3/uL (0.0-0.2) 08/29/21 16:06 Baso # (Auto) 0.0 X10^3/uL (0.0-0.1) 08/29/21 16:06 Absolute Nucleated RBC 0.0 /100WBC 08/29/21 16:06 PT 14.3 SECONDS (11.8-14.3) 08/29/21 16:06 INR Target Range - 08/29/21 16:06 INR 1.15 (0.8-1.3) 08/29/21 16:06 APTT 27.0 SECONDS (22.9-36.5) 08/29/21 16:06 PTT Comment - 08/29/21 16:06 Sodium 134 mmol/L (136-145) L 08/29/21 16:06 Corrected Sodium 134 mmol/L (136-145) L 08/29/21 16:06 Potassium 4.6 mmol/L (3.5-5.1) 08/29/21 16:06 Chloride 97 mmol/L (98-107) L 08/29/21 16:06 Carbon Dioxide 29.9 mmol/L (21-32) 08/29/21 16:06 BUN 22 mg/dL (7-18) H 08/29/21 16:06 Creatinine 1.25 mg/dL (0.55-1.02) H 08/29/21 16:06 Est GFR (MDRD) Af Amer 54 (>60) L 08/29/21 16:06 Est GFR (MDRD) Non-Af 44 (>60) L 08/29/21 16:06 Glucose 120 mg/dL (65-99) H 08/29/21 16:06 Calcium 9.9 mg/dL (8.5-10.1) 08/29/21 16:06 Corrected Calcium TNP 08/29/21 16:06 Total Bilirubin 0.60 mg/dL (0.2-1.0) 08/29/21 16:06 AST 43 Units/L (15-37) H 08/29/21 16:06 ALT 15 Units/L (12-78) 08/29/21 16:06 Alkaline Phosphatase 66 Units/L (46-116) 08/29/21 16:06 Creatine Kinase 127 Units/L (26-192) 08/29/21 16:06 CK-MB (CK-2) 1.2 ng/mL (0-4.0) 08/29/21 16:06 CK/CKMB % Calc 0.9 % (<4) 08/29/21 16:06 Troponin I High Sens 7.0 ng/L (4.0-60.0) 08/29/21 16:06 B-Natriuretic Peptide 79.4 pg/mL (0-79) H 08/29/21 16:06 Total Protein 8.6 g/dL (6.4-8.2) H 08/29/21 16:06 Albumin 4.0 g/dL (3.4-5.0) 08/29/21 16:06 Globulin 4.6 g/dL (2.5-4.5) H 08/29/21 16:06 Albumin/Globulin Ratio 0.9 Ratio (1.1-2.1) L 08/29/21 16:06 Amylase 58 Units/L (25-115) 08/29/21 16:06 Lipase 86 Units/L (73-393) 08/29/21 16:06 Specimen Type Clean catch urine 08/29/21 16:36 Urine Color Yellow (YELLOW) 08/29/21 16:36 Urine Appearance Clear (CLEAR) 08/29/21 16:36 Urine pH 5.0 (5.0 - 8.0) 08/29/21 16:36 Ur Specific [place] 1.020 (1.000-1.030) 08/29/21 16:36 Urine Protein 2+ (NEGATIVE) 08/29/21 16:36 Urine Glucose (UA) Negative (NEGATIVE) 08/29/21 16:36 Urine Ketones 1+ (NEGATIVE) 08/29/21 16:36 Urine Blood 5+ (NEGATIVE) 08/29/21 16:36 Urine Nitrite Negative (NEGATIVE) 08/29/21 16:36 Urine Bilirubin Negative (NEGATIVE) 08/29/21 16:36 Urine Urobilinogen Normal (NORMAL) 08/29/21 16:36 Ur Leukocyte Esterase 1+ (NEGATIVE) 08/29/21 16:36 Urine RBC 10-20 /HPF (0-3) A 08/29/21 16:36 Urine WBC 3-5 /HPF (0-5) 08/29/21 16:36 Ur Squamous Epith Cells Few /HPF (NEGATIVE) 08/29/21 16:36 Urine Bacteria Trace /HPF (NEGATIVE) 08/29/21 16:36 Urine Mucus Few /HPF (NEGATIVE) 08/29/21 16:36 Ur Culture Indicated? No/not indicated 08/29/21 16:36 XRAY XRAY Interpreted by: Radiologist (REPORT NOTED.) and Self EKG Rate: 62 [place]: Normal Rhythm: NSR Block: None Hypertrophy: None ST: Old and Infarct (SEPTAL.) Opioid Opioid Risk Tool Age (Guille box if 16-45): No History of Preadolescent Sexual Abuse: No Total: 0 Total Score Risk Category: Low Risk Copyright: [facility] predicting aberrant behaviors Diagnosis Discharge Problem: Acute dehydration, Generalized weakness Fall Qualifiers: Encounter type: initial encounter Qualified Code(s): W19.XXXA - Unspecified fall, initial encounter Syncope Qualifiers: Syncope type: unspecified Qualified Code(s): R55 - Syncope and collapse Acute shoulder pain Qualifiers: Laterality: right Qualified Code(s): M25.511 - Pain in right shoulder Elbow pain Qualifiers: Laterality: right Qualified Code(s): M25.521 - Pain in right elbow Instructions Instructions: Transient Ischemic Attack, Jbxa-[id number] Weakness, [id number] Urinary Tract Infection, Adult, [id number] Managing Your Hypertension Dehydration, Elderly, Gnky-xa-Judj Forms: Precautions for COVID19 [facility] Social Distancing
--- NOTE | 2021-08-29 16:14 | CT ---
HISTORYPASSED OUT AND FOUND ON FLOOR[Altered mental status]Noncontrast head CT examination.Comparison: [None].Technique:Multiple axial images of the brain were obtained from the skull base to the vertex without administration of IV contrast.Findings: Bilateral basal ganglial lacunae/lacunar ischemic events are identified; age indeterminate. There is moderate sulcal and cisternal prominence as well as atherosclerotic change in the proximal intracranial carotid and vertebral arteries, which is not out of proportion to the patient's stated age. There is diffuse CT density alteration seen in the periventricular white matter of the high and mid-convexity, which is likely in the setting of small vessel disease and not out of proportion to the patient's stated age. There is [mild bilateral ex vacuo] ventricular dilatation without evidence for hydrocephalus or herniation syndrome. No midline shift is evident. No acute intraparenchymal hemorrhage or mass can be identified. If there remains a strong concern for any intra-cranial neoplasm, then follow-up with CT or MR imaging of the brain would be more sensitive to exclude any intra-cranial mass lesion. No extra-axial fluid collections are seen. No alteration in the attenuation of the brain parenchyma can be identified to suggest acute or subacute ischemic change. However, if clinical symptoms are concerning for an acute CVA, then follow-up MRI with DWI sequencing is recommended. The extracranial structures [are unremarkable].IMPRESSION:No acute intracranial hemorrhage or midline shift identified.Chronic appearing periventricular white matter microvascular disease.Bilateral basal ganglial lacunae/lacunar ischemic events are identified; age indeterminate. If the patients symptoms are clinically & neurologically concerning for an acute ischemic event, then MR imaging of the brain with DWI sequencing should be considered to exclude an acute CVA (based on this patient? s clinical presentation and the specific medical circumstance).Electronically signed by: RICHARD ADRIAN III (August 29, 2021 16:12:07)
[2021-08-29 16:19] LABS: BASOPHILS % (AUTO) 0.4 % (0.2-1.0); EOSINOPHILS % (AUTO) 0.1 % (0.9-2.9); HEMATOCRIT 39.2 % (36.0-47.0); HEMOGLOBIN 13.1 g/dL (12.0-16.0); LYMPHOCYTES # (AUTO) 1.2 X10^3/uL (1.3-2.9); MEAN CORPUSCULAR HEMOGLOBIN 25.9 pg (27.0-34.0); MEAN CORPUSCULAR HGB CONC 33.5 g/dL (33.0-35.0); MEAN CORPUSCULAR VOLUME 77.4 fL (80.0-100.0); MEAN PLATELET VOLUME 8.3 fL (7.4-11.0); MONOCYTES # (AUTO) 0.5 x10^3/uL (0.3-0.8); MONOCYTES % (AUTO) 4.4 % (0.0-13.0); NEUTROPHILS # (AUTO) 9.4 x10^3/uL (2.2-4.8); NEUTROPHILS % (AUTO) 84.1 % (42.0-75.0); RED BLOOD COUNT 5.06 X10^6/uL (3.5-5.4); RED CELL DISTRIBUTION WIDTH 14.8 % (11.6-16.5); WHITE BLOOD COUNT 11.2 X10^3/uL (3.6-10.0)
--- NOTE | 2021-08-29 16:19 | RAD ---
HISTORYPASSED OUT AND FOUND ON FLOOR Relevant Clinical InformationSTUDYCHEST, 1 VIEWCOMPARISONNone available.FINDINGSThe trachea is midline. The cardiac silhouette is mildly enlarged. The lungs are clear without focal infiltrate or effusion. 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 No acute bony injuries or abnormalities are otherwise seen.IMPRESSIONNo acute cardiopulmonary findings .Electronically signed by: RICHARD ADRIAN III (August 29, 2021 16:18:37)
[2021-08-29 16:41] LABS: ALANINE AMINOTRANSFERASE 15 Units/L (12-78); ALKALINE PHOSPHATASE 66 Units/L (46-116); AMYLASE 58 Units/L (25-115); ASPARTATE AMINO TRANSFERASE 43 Units/L (15-37); BLOOD UREA NITROGEN 22 mg/dL (7-18); CALCIUM 9.9 mg/dL (8.5-10.1); CARBON DIOXIDE 29.9 mmol/L (21-32); CHLORIDE 97 mmol/L (98-107); CKMB % 0.9 % (<4); COR NA(FOR HYPERGLY) 134 mmol/L (136-145); CREATINE KINASE 127 Units/L (26-192); CREATINE KINASE MB 1.2 ng/mL (0-4.0); CREATININE 1.25 mg/dL (0.55-1.02); LIPASE 86 Units/L (73-393); SODIUM 134 mmol/L (136-145); TOTAL PROTEIN 8.6 g/dL (6.4-8.2); eGFR NON BLACK RACES 44 (>60)
[2021-08-29 16:44] LABS: BILIRUBIN,URINE NEGATIVE (NEGATIVE); BLOOD/HEMOGLOBIN,URINE 5+ (NEGATIVE); GLUCOSE, URINE NEGATIVE (NEGATIVE); KETONES,URINE 1+ (NEGATIVE); LEUKOCYTE ESTERASE ,URINE 1+ (NEGATIVE); NITRITES,URINE NEGATIVE (NEGATIVE); PROTEIN,URINE 2+ (NEGATIVE); UROBILINOGEN,URINE NORMAL (NORMAL)
[2021-08-29 16:49] LABS: COLOR,URINE YELLOW (YELLOW)
[2021-08-29 16:52] LABS: APPEARANCE,URINE CLEAR (CLEAR); BACTERIA,URINE TRACE /HPF (NEGATIVE); SQUAMOUS EPITHELIAL CELL,UR FEW /HPF (NEGATIVE)
[2021-08-29] MEDS ORDERED: NS 1,000 ML IV 1,000 ML ONE (17:38)
[2021-08-29] MEDS ORDERED: NS 1,000 ML IV 1,000 ML IV ONE (17:43)
[2021-08-29] MEDS ORDERED: ULTRAM PO PRN (20:08)
[2021-08-29 23:03] VITALS: BMI 24.7
[2021-08-29] MEDS: NS 1,000 ML IV 1,000 ML IV SCH (23:10)
[2021-08-29 23:48] LABS: CREATINE KINASE MB 1.5 ng/mL (0-4.0)
[2021-08-30 05:46] LABS: BASOPHILS % (AUTO) 0.3 % (0.2-1.0); EOSINOPHILS # (AUTO) 0.1 x10^3/uL (0.0-0.2); EOSINOPHILS % (AUTO) 0.7 % (0.9-2.9); HEMOGLOBIN 11.4 g/dL (12.0-16.0); LYMPHOCYTES # (AUTO) 2.5 X10^3/uL (1.3-2.9); LYMPHOCYTES % (AUTO) 26.9 % (21.0-51.0); MEAN CORPUSCULAR HEMOGLOBIN 26.6 pg (27.0-34.0); MEAN CORPUSCULAR HGB CONC 34.5 g/dL (33.0-35.0); MEAN PLATELET VOLUME 8.4 fL (7.4-11.0); MONOCYTES # (AUTO) 0.6 x10^3/uL (0.3-0.8); NEUTROPHILS % (AUTO) 65.1 % (42.0-75.0); RED BLOOD COUNT 4.29 X10^6/uL (3.5-5.4); RED CELL DISTRIBUTION WIDTH 14.8 % (11.6-16.5); WHITE BLOOD COUNT 9.1 X10^3/uL (3.6-10.0)
[2021-08-30 06:08] LABS: ALANINE AMINOTRANSFERASE 10 Units/L (12-78); ALBUMIN 3.3 g/dL (3.4-5.0); ALKALINE PHOSPHATASE 56 Units/L (46-116); ASPARTATE AMINO TRANSFERASE 38 Units/L (15-37); BLOOD UREA NITROGEN 20 mg/dL (7-18); CALCIUM 8.7 mg/dL (8.5-10.1); CARBON DIOXIDE 24.7 mmol/L (21-32); CHLORIDE 101 mmol/L (98-107); CKMB % 0.8 % (<4); COR CA(FOR HYPOALB) 9.3 mg/dL (8.5-10.1); CREATINE KINASE 134 Units/L (26-192); CREATINE KINASE MB < 1.0 ng/mL (0-4.0); CREATININE 1.16 mg/dL (0.55-1.02); MAGNESIUM 1.8 mg/dL (1.7-2.9); SODIUM 135 mmol/L (136-145); TOTAL PROTEIN 7.2 g/dL (6.4-8.2); eGFR NON BLACK RACES 48 (>60)
[2021-08-30] MEDS ORDERED: K-RIDER 10 MEQ/NS 100 ML 10 MEQ/100 ML BAG IV PRN (07:36)
[2021-08-30] MEDS ORDERED: MAGNESIUM SULFATE 1 GRAM/100 mL PREMIX 1 G/100 ML BAG IV PRN (07:40)
--- NOTE | 2021-08-30 11:05 | DR.H&P ---
H&P - History & Physical for Day of: H&P Date: 08/29/21 - Chief Complaint Chief Complaint: WEAKNESS, FALLS, CONFUSION, DECREASED ORAL INTAKE - History of Present Illness History of Present Illness: IS A 76 YEAR OLD PATIENT OF OURS. SHE PRESENTED TO THE ER WITH COMPLAINTS OF FREQUENT FALLS, CONFUSION, AND DECREASED ORAL INTAKE. FAMILY REPORTS THAT THEY FOUND PATIENT LYING ON THE FLOOR TODAY. THEY ARE UNAWARE OF HOW LONG SHE HAD BEEN LYING THERE. THEY REPORT THAT PATIENT HAS HAD NAUSEA, VOMITING, AND DIARRHEA THROUGHOUT THE DAY TODAY. PATIENT IS ALERT ON ARRIVAL TO THE ER, BUT WAS CONFUSED AND WAS NOT ABLE TO GIVE MUCH INFORMATION. SHE DENIED HAVING ANY PAIN. HER PMH INCLUDES DEPRESSION, GERD, HTN, DIVERTICULITIS. ON ARRIVAL TO THE ER, VITALS WERE 98.2-100-20-92%RA-137/79. LABS WERE OBTAINED. WBC 11.2, RBC 5.06, HGB 13.1, HCT 39.2, SODIUM 134, POTASSIUM 4.6, BUN 22, CREATININE 1.25, GLUCOSE 120, CALCIUM 9.9, AST 43, ALT 15, ALK PHOS 66, BNP 79.4, TOTAL PROTEIN 8.6, GLOBULIN 4.6. CARDIAC ENZYMES WERE WITHIN NORMAL LIMITS. URINALYSIS REVEALED: WBC 3-5, RBC 10-20, BACTERIA TRACE, LEUKOCYTES 1+, BLOOD 5+. COVID-19 NEGATIVE. CHEST XRAY OBTAINED AND REVEALED: The trachea is midline. The cardiac silhouette is mildly enlarged. The lungs are clear without focal infiltrate or effusion. 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 No acute bony injuries or abnormalities are otherwise seen. BRAIN CT OBTAINED AND REVEALED: No acute intracranial hemorrhage or midline shift identified. Chronic appearing periventricular white matter microvascular disease. Bilateral basal ganglial lacunae/lacunar ischemic events are identified; age indeterminate. If the patients symptoms are clinically & neurologically concerning for an acute ischemic event, then MR imaging of the brain with DWI sequencing should be considered to exclude an acute CVA (based on this patients clinical presentation and the specific medical circumstance). EKG OBTAINED AND REVEALED NSR WITH HR 62. PATIENT WAS ADMITTED TO THE HOSPTIAL OBSERVATION STATUS FOR FURTHER EVALUATION AND TREATMENT OF DEHYDRATION, AMS, GENERALIZED WEAKNESS, UTI, R/O CVA. SHE WAS STARTED ON NORMAL SALINE AT 75 ML/HR, THE POTASSIUM AND MAGNESIUM PROTOCOL, TRANADOL 50MG PO Q4H PRN, AND HER HOME MEDICATONS WERE RESUMED. WE WILL OBTAIN A BRAIN MRI WITHOUT CONTRAST TO RULE OUT ACUTE CVA. OTHERWISE, WE PLAN TO FOLLOW-UP WITH AM LABS AND CONTINUE TO MONITOR. TIME SPENT ON CLINICAL ASSESSMENT, REVIEWING LABS AND IMAGING, DECISION MAKING, AND DOCUMENTATION GREATER THAN 75 MINUTES. - Past Medical History Past Medical History: Hypertension, Depression, GERD Additional Medical History: DIVERTICULITIS - Past Surgical History Surgical History: Appendectomy, Hysterectomy, Ortho Surgery, Tonsillectomy - Family History Family Medical History: Hypertension - Social History Does patient currently use any type of tobacco product: No Have you used tobacco products in the last 12 months: No Type of Tobacco Use: None Does any household member use tobacco: No Alcohol Use: None Drug Use: None - Medications Home Medications: codeine Allergy (Verified 08/29/21 15:11) Fish Containing Products Allergy (Verified 05/19/18 12:23) iodine Allergy (Verified 05/16/18 00:29) levofloxacin Allergy (Verified 05/15/18 22:49) Penicillins Allergy (Verified 05/15/18 22:49) CONTINUE taking the following medications cholecalciferol (vitamin D3) [Vitamin D3] 250 mcg PO ONCE 08/29/21 [History] citalopram 20 mg PO DAILY 08/29/21 [History] lisinopril 5 mg PO DAILY 08/29/21 [History] loratadine 10 mg PO DAILY 08/29/21 [History] metoprolol succinate 25 mg PO DAILY 08/29/21 [History] omeprazole 40 mg PO DAILY 08/29/21 [History] polyethylene glycol 3350 [Miralax] 17 g PO PRN PRN 08/29/21 [History] potassium chloride [Klor-Con M20] 20 meq PO DAILY 08/29/21 [History] tramadol-acetaminophen 1 tab PO Q4H 08/29/21 [History] - Review of Systems Constitutional: Weakness, Malaise Eyes: No Symptoms Reported ENT: No Symptoms Reported Respiratory: No Symptoms Reported Cardiovascular: Light Headedness Gastrointestinal: No Symptoms Reported Genitourinary: No Symptoms Reported Musculoskeletal: No Symptoms Reported Skin: No Symptoms Reported Neurological: Weakness - Physical Exam Vital Signs: Temperature 98.3 F Pulse Rate [Right Brachial] 63 Pulse Rate 62 Respiratory Rate 18 Blood Pressure [Right Arm] 150/67 Blood Pressure 148/78 O2 Sat by Pulse Oximetry 95 Oriented: Person, Not Oriented Eyes: Normal Ear: Normal Nose: Normal Throat: Normal Respiratory: Diminished Throughout Cardiovascular: Normal : Normal Auscultation: Bowel Sounds: Normal Palpation: Normal Tenderness: Normal Skin: Decreased [place], Bruising (SCATTERED ) Musculoskeletal: Normal Psychiatric: Normal Mood Description: Calm Affect: Normal Speech Pattern: Inappropriate - Assessment/Plan (1) Dehydration Status: Acute Plan: ADMIT, NORMAL SALINE AT 75 ML/HR, THE POTASSIUM AND MAGNESIUM PROTOCOL, TRANADOL 50MG PO Q4H PRN, AND HER HOME MEDICATONS WERE RESUMED (2) Urinary tract infection Qualifiers: Urinary tract infection type: acute cystitis Hematuria presence: with hematuria Qualified Code(s): N30.01 - Acute cystitis with hematuria Status: Acute (3) TIA (transient ischemic attack) Status: Acute Plan: OBTAIN BRAIN MRI (4) Hyponatremia Status: Acute (5) Generalized weakness Status: Acute - Allergies Allergies/Adverse Reactions: Allergies Allergy/AdvReac Type Severity Reaction Status Date / Time codeine Allergy Verified 08/29/21 15:11 Fish Containing Products Allergy Verified 05/19/18 12:23 iodine Allergy Verified 05/16/18 00:29 levofloxacin Allergy Verified 05/15/18 22:49 Penicillins Allergy Verified 05/15/18 22:49
[2021-08-30] MEDS ORDERED: MIRALAX POWDER (1 DOSE 17 G) PO PRN (12:06)
[2021-08-30] MEDS: NS 1,000 ML IV 1,000 ML IV SCH ×2 (13:22→21:08)
[2021-08-30] MEDS: VIBRAMYCIN PO SCH ×2 (13:36→21:08)
[2021-08-30] MEDS: CELEXA PO SCH (13:36)
[2021-08-30] MEDS: ZESTRIL TAB 5 MG PO SCH (13:36)
[2021-08-30] MEDS: K-DUR TAB 20 MEQ PO SCH ×2 (13:37→13:38)
[2021-08-30] MEDS: PriLOSEC PO SCH (13:37)
[2021-08-30] MEDS: CLARITIN PO SCH (13:37)
[2021-08-30] MEDS: ULTRAM PO PRN ×2 (13:38→21:09)
--- NOTE | 2021-08-30 14:48 | MRI ---
HISTORYFREQUENT FALLS, AMS, WEAKNESS, R/O CVASTUDYBRAIN W/O CONCOMPARISONCT head from 08/29/2021.TECHNIQUEMultiplanar multi-sequence MRI of the brain was obtained utilizing standard departmental protocol. Sagittal and axial T1 weighted images were obtained. Axial T2 and flair weighted images were performed as well. Axial diffusion weighted and ADC trace mapping was performed.FINDINGSDiffusion imaging: [Normal, no acute infarct.]Susceptibility weighted imaging: [Hemosiderin rim about left basal ganglia lacunar infarct.]Brain volume: [Appropriate for age.]Ventricles and basal cisterns: FLAIR bright signal in the basilar cisterns, 3rd ventricle, and 4th ventricle is nonspecific but often due to technical artifact. No abnormal signal in these locations on other pulse sequences. No hydrocephalus.Extra-axial spaces: [No extra-axial collection.]Cerebral parynchema: [No mass, hematoma, or mass effect.] Moderate amount of T2 and Flair hyperintensities in the supratentorial subcortical and deep white matter. Chronic left basal ganglia lacunar infarct. 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 Moderate chronic small vessel disease and chronic lacunar infarcts in the left basal ganglia and in the latanya.]Electronically signed by: Julián Riggins (August 30, 2021 14:47:19)
[2021-08-30] MEDS ORDERED: CATAPRES TAB 0.1 MG PO ONE (23:58)
[2021-08-30] MEDS ORDERED: CATAPRES TAB 0.1 MG ONE (23:58)
[2021-08-31 05:56] LABS: BASOPHILS # (AUTO) 0.1 X10^3/uL (0.0-0.1); BASOPHILS % (AUTO) 0.9 % (0.2-1.0); EOSINOPHILS # (AUTO) 0.2 x10^3/uL (0.0-0.2); EOSINOPHILS % (AUTO) 3.6 % (0.9-2.9); HEMOGLOBIN 10.7 g/dL (12.0-16.0); LYMPHOCYTES # (AUTO) 1.9 X10^3/uL (1.3-2.9); LYMPHOCYTES % (AUTO) 26.8 % (21.0-51.0); MEAN CORPUSCULAR HEMOGLOBIN 26.8 pg (27.0-34.0); MEAN CORPUSCULAR HGB CONC 34.5 g/dL (33.0-35.0); MEAN CORPUSCULAR VOLUME 77.7 fL (80.0-100.0); MEAN PLATELET VOLUME 8.1 fL (7.4-11.0); MONOCYTES # (AUTO) 0.6 x10^3/uL (0.3-0.8); MONOCYTES % (AUTO) 8.2 % (0.0-13.0); NEUTROPHILS # (AUTO) 4.2 x10^3/uL (2.2-4.8); NEUTROPHILS % (AUTO) 60.5 % (42.0-75.0); RED CELL DISTRIBUTION WIDTH 15.2 % (11.6-16.5); WHITE BLOOD COUNT 6.9 X10^3/uL (3.6-10.0)
[2021-08-31 06:13] LABS: ALANINE AMINOTRANSFERASE 7 Units/L (12-78); ALBUMIN 2.9 g/dL (3.4-5.0); ALKALINE PHOSPHATASE 52 Units/L (46-116); ASPARTATE AMINO TRANSFERASE 33 Units/L (15-37); BLOOD UREA NITROGEN 16 mg/dL (7-18); CALCIUM 7.8 mg/dL (8.5-10.1); CARBON DIOXIDE 25.7 mmol/L (21-32); CHLORIDE 104 mmol/L (98-107); COR CA(FOR HYPOALB) 8.7 mg/dL (8.5-10.1); CREATININE 1.01 mg/dL (0.55-1.02); SODIUM 137 mmol/L (136-145); TOTAL PROTEIN 6.5 g/dL (6.4-8.2); eGFR NON BLACK RACES 57 (>60)
[2021-08-31 07:59] VITALS: BP 124/63
[2021-08-31] MEDS: CELEXA PO SCH (08:45)
[2021-08-31] MEDS: K-DUR TAB 20 MEQ PO SCH (08:46)
[2021-08-31] MEDS: ZESTRIL TAB 5 MG PO SCH (08:46)
[2021-08-31] MEDS: VIBRAMYCIN PO SCH (08:46)
[2021-08-31] MEDS: CLARITIN PO SCH (08:46)
[2021-08-31] MEDS: PriLOSEC PO SCH (08:47)
--- NOTE | 2021-10-15 08:27 | PCM.PROG ---
Progress Note - Progress Note for Day of Date of Exam: 08/30/21 - Subjective Subjective: IS CURRENTLY OBSERVATION STATUS FOR TREATMENT OF DEHYDRATION, URINARY TRACT INFECTION, TIA, HYPONATREMIA, AND GENERALIZED WEAKNESS. TODAY, SHE IS ALERT AND ORIENTED, LYING IN BED ON MORNING ROUNDS. SHE REPORTS GENERALIZED WEAKNESS THIS MORNING. STAFF AND FAMILY REPORT THAT SHE DOES CONTINUE TO HAVE CONFUSION AT TIMES. SHE DENIES CURRENT PAIN. ON EXAMINATION, HEART IS REGULAR IN RATE AND RHYTHM. BILATERAL LUNGS ARE CLEAR TO AUSCULTATION. ABDOMEN IS ROUND, SOFT, AND NON-TENDER. NORMAL BOWEL SOUNDS ARE NOTED IN ALL QUADRANTS. NO UPPER OR LOWER EXTREMITY EDEMA NOTED. DIFFUSE WEAKNESS TO UPPER AND LOWER EXTREMITIES. HER VITALS THIS MORNING ARE: 98.3-63-18-95%-150/67. LABS WERE OBTAINED. WBC 9.1, RBC 4.29, HGB 11.4, HCT 33.0, PLT COUNT 245, SODIUM 135, POTASSIUM 4.1, BUN 20, CREATININE 1.16, GLUCOSE 103, MAGNESIUM 1.8, AST 38, ALT 10, ALK PHOS 56, TOTAL PROTEIN 7.2, ALBUMIN 3.3. CARDIAC ENZYMES WITHIN NORMAL LIMITS. NO CHANGES NOTED TO EKGS. WE OBTAINED A BRAIN MRI THIS MORNING. IT REVEALED: No abnormal restricted diffusion to suggest acute infarct. Moderate chronic small vessel disease and chronic lacunar infarcts in the left basal ganglia and in the latanya. SHE IS CURRENTLY RECEIVING NORMAL SALINE AT 75 ML/HR, THE POTASSIUM AND MAGNESIUM PROTOCOL, TRAMADOL 50MG PO Q4H PRN, AND HER HOME MEDICATONS WERE RESUMED. WE WILL CONTINUE WITH CURRENT PLAN OF CARE TODAY. WE WI LL HAVE PHYSICAL THERAPY EVALUATE AND WORK WITH HER. OTHERWISE, WE PLAN OT FOLLOW-UP WITH AM LABS AND CONTINUE TO MONITOR. TIME SPENT ON CLINICAL ASSESSMENT, REVIWING LABS AND IMAGING, DECISION MAKING, AND DOCUMENTATION GREATER THAN 45 MINUTES. - Past Medical Family Social History Past Med/Fam/Surg Hx: No changes since H&P Allergies: Allergies codeine Allergy (Verified 08/29/21 15:11) Fish Containing Products Allergy (Verified 05/19/18 12:23) iodine Allergy (Verified 05/16/18 00:29) levofloxacin Allergy (Verified 05/15/18 22:49) Penicillins Allergy (Verified 05/15/18 22:49) - Review of Systems ROS: No change since H&P - Vital Signs and I&O's Vital Signs: Temperature 97.9 F Pulse Rate [Right Brachial] 56 Pulse Rate 62 Respiratory Rate 18 Blood Pressure [Right Arm] 124/63 Blood Pressure 148/78 O2 Sat by Pulse Oximetry 95 - Physical Exam Oriented: Person Eyes: Normal Ear: Normal Nose: Normal Throat: Normal Respiratory: Normal Cardiovascular: Normal : Normal Auscultation: Bowel Sounds: Normal Palpation: Normal Tenderness: Normal Skin: Decreased Turgur, Bruising (SCATTERED ) Musculoskeletal: Normal Psychiatric: Normal Mood Description: Calm Affect: Normal Speech Pattern: Clear, Appropriate - Laboratory and Diagnostics Result Diagrams: 08/31/21 05:35 08/31/21 05:35 Labs: Laboratory WBC 6.9 X10^3/uL (3.6-10.0) 08/31/21 05:35 RBC 4.00 X10^6/uL (3.5-5.4) 08/31/21 05:35 Hgb 10.7 g/dL (12.0-16.0) L 08/31/21 05:35 Hct 31.0 % (36.0-47.0) L 08/31/21 05:35 MCV 77.7 fL (80.0-100.0) L 08/31/21 05:35 MCH 26.8 pg (27.0-34.0) L 08/31/21 05:35 MCHC 34.5 g/dL (33.0-35.0) 08/31/21 05:35 RDW 15.2 % (11.6-16.5) 08/31/21 05:35 Plt Count 194 X10^3/uL (150.0-450.0) 08/31/21 05:35 MPV 8.1 fL (7.4-11.0) 08/31/21 05:35 Neut % (Auto) 60.5 % (42.0-75.0) 08/31/21 05:35 Lymph % (Auto) 26.8 % (21.0-51.0) 08/31/21 05:35 [place] % (Auto) 8.2 % (0.0-13.0) 08/31/21 05:35 Eos % (Auto) 3.6 % (0.9-2.9) H 08/31/21 05:35 Baso % (Auto) 0.9 % (0.2-1.0) 08/31/21 05:35 Neut # (Auto) 4.2 x10^3/uL (2.2-4.8) 08/31/21 05:35 Lymph # (Auto) 1.9 X10^3/uL (1.3-2.9) 08/31/21 05:35 [place] # (Auto) 0.6 x10^3/uL (0.3-0.8) 08/31/21 05:35 Eos # (Auto) 0.2 x10^3/uL (0.0-0.2) 08/31/21 05:35 Baso # (Auto) 0.1 X10^3/uL (0.0-0.1) 08/31/21 05:35 Absolute Nucleated RBC 0.0 /100WBC 08/31/21 05:35 PT 14.6 SECONDS (11.8-14.3) 08/30/21 05:14 INR Target Range - 08/30/21 05:14 INR 1.18 (0.8-1.3) 08/30/21 05:14 APTT 30.1 SECONDS (22.9-36.5) 08/30/21 05:14 PTT Comment - 08/30/21 05:14 Sodium 137 mmol/L (136-145) 08/31/21 05:35 Corrected Sodium TNP 08/31/21 05:35 Potassium 3.8 mmol/L (3.5-5.1) 08/31/21 05:35 Chloride 104 mmol/L (98-107) 08/31/21 05:35 Carbon Dioxide 25.7 mmol/L (21-32) 08/31/21 05:35 BUN 16 mg/dL (7-18) 08/31/21 05:35 Creatinine 1.01 mg/dL (0.55-1.02) 08/31/21 05:35 Est GFR (MDRD) Af Amer > 60 (>60) 08/31/21 05:35 Est GFR (MDRD) Non-Af 57 (>60) L 08/31/21 05:35 Glucose 101 mg/dL (65-99) H 08/31/21 05:35 Calcium 7.8 mg/dL (8.5-10.1) L 08/31/21 05:35 Corrected Calcium 8.7 mg/dL (8.5-10.1) 08/31/21 05:35 Magnesium 1.8 mg/dL (1.7-2.9) 08/30/21 05:14 Total Bilirubin 0.40 mg/dL (0.2-1.0) 08/31/21 05:35 AST 33 Units/L (15-37) 08/31/21 05:35 ALT 7 Units/L (12-78) L 08/31/21 05:35 Alkaline Phosphatase 52 Units/L (46-116) 08/31/21 05:35 Creatine Kinase 134 Units/L (26-192) 08/30/21 05:14 CK-MB (CK-2) < 1.0 ng/mL (0-4.0) 08/30/21 05:14 CK/CKMB % Calc 0.8 % (<4) 08/30/21 05:14 Troponin I High Sens 8.9 ng/L (4.0-60.0) 08/30/21 05:14 B-Natriuretic Peptide 79.4 pg/mL (0-79) H 08/29/21 16:06 Total Protein 6.5 g/dL (6.4-8.2) 08/31/21 05:35 Albumin 2.9 g/dL (3.4-5.0) L 08/31/21 05:35 Globulin 3.6 g/dL (2.5-4.5) 08/31/21 05:35 Albumin/Globulin Ratio 0.8 Ratio (1.1-2.1) L 08/31/21 05:35 Amylase 58 Units/L (25-115) 08/29/21 16:06 Lipase 86 Units/L (73-393) 08/29/21 16:06 Specimen Type Clean catch urine 08/29/21 16:36 Urine Color Yellow (YELLOW) 08/29/21 16:36 Urine Appearance Clear (CLEAR) 08/29/21 16:36 Urine pH 5.0 (5.0 - 8.0) 08/29/21 16:36 Ur Specific [place] 1.020 (1.000-1.030) 08/29/21 16:36 Urine Protein 2+ (NEGATIVE) 08/29/21 16:36 Urine Glucose (UA) Negative (NEGATIVE) 08/29/21 16:36 Urine Ketones 1+ (NEGATIVE) 08/29/21 16:36 Urine Blood 5+ (NEGATIVE) 08/29/21 16:36 Urine Nitrite Negative (NEGATIVE) 08/29/21 16:36 Urine Bilirubin Negative (NEGATIVE) 08/29/21 16:36 Urine Urobilinogen Normal (NORMAL) 08/29/21 16:36 Ur Leukocyte Esterase 1+ (NEGATIVE) 08/29/21 16:36 Urine RBC 10-20 /HPF (0-3) A 08/29/21 16:36 Urine WBC 3-5 /HPF (0-5) 08/29/21 16:36 Ur Squamous Epith Cells Few /HPF (NEGATIVE) 08/29/21 16:36 Urine Bacteria Trace /HPF (NEGATIVE) 08/29/21 16:36 Urine Mucus Few /HPF (NEGATIVE) 08/29/21 16:36 Ur Culture Indicated? No/not indicated 08/29/21 16:36 SARS-CoV-2 (PCR) Negative (NEGATIVE) 08/29/21 19:17 - Plan (1) Dehydration Status: Acute Plan: NORMAL SALINE AT 75 ML/HR, THE POTASSIUM AND MAGNESIUM PROTOCOL, TRANADOL 50MG PO Q4H PRN, AND HER HOME MEDICATONS WERE RESUMED (2) Urinary tract infection Status: Acute Qualifiers: Urinary tract infection type: acute cystitis Hematuria presence: with hematuria Qualified Code(s): N30.01 - Acute cystitis with hematuria (3) TIA (transient ischemic attack) Status: Acute Plan: OBTAIN BRAIN MRI (4) Hyponatremia Status: Acute (5) Generalized weakness Status: Acute (6) Hypertension Status: Chronic Qualifiers: Hypertension type: primary hypertension Qualified Code(s): I10 - Essential (primary) hypertension
== END 2021-08-31 10:50 | disposition home health service (06) ==
LOC: MED/SURG 14:56 → ER 14:56 → MED/SURG 19:58
PROVIDERS: ADMIT Internal Medicine; ATTEND Internal Medicine
DX: R29.6 Repeated falls; I10 Essential (primary) hypertension; K21.9 Gastro-esophageal reflux disease without esophagitis; G45.9 Transient cerebral ischemic attack, unspecified; R06.02 Shortness of breath; E86.0 Dehydration; W18.39XA Other fall on same level, initial encounter; N30.01 Acute cystitis with hematuria; E87.1 Hypo-osmolality and hyponatremia; R41.82 Altered mental status, unspecified; R94.31 Abnormal electrocardiogram [ECG] [EKG]; R53.1 Weakness; Z20.822 Contact with and (suspected) exposure to COVID-19; R55 Syncope and collapse